=== PATIENT | female | born 1965 | race Caucasian/White ===

== ENCOUNTER 2019-03-16 13:18 | Inpatient (IN) ==
--- OUTSIDE RECORDS SUMMARY | 2019-03-16 13:21 | External Medical Summary | Continuity of Care Document ---
:1965 Author Name Christa Astorga Address Unavailable Unavailable , Care Team Providers Name Role Phone Unavailable Unavailable Unavailable Problems Active medical history not documented Allergies and Adverse Reactions No Known Drug Allergies (Allergy) Medications Topiramate 25 MG Oral Tablet; TAKE 1 TAB LET IN THE MORNING AND 2 TABLETS AT BEDTIME. , M.DPriscilla Start: 17-Jan-2016 Refills: 0 PROzac 40 MG Oral Capsule; TAKE 2 CAPSULES DAILY. , M.D. Start: 17-Jan-2016 Refills: 0 Procedures History of Total Abdominal Hysterectomy Status: Completed History of Breast Surgery Lumpectomy Sta tus: Completed Immunizations Immunizations not documented Social History - Smoking Status Never smoker Plan of Treatment Planned Observations Planned Goals not documented Results No Known Results Results not documented
[2019-03-16] MEDS ORDERED: LORazepam 1 MG TAB PO STA (13:32)
--- NOTE | 2019-03-16 13:49 | Emergency Department Note ---
Entered by Annita Meehan acting as a scribe for History of Present Illness General Chief complaint: Mental Health Evaluation Stated complaint: ANXIETY Time Seen by Provider: 03/16/19 13:24 Source: patient and family History of Present Illness Onset (ago): week(s) 2 Location: head Pain Consistency: + other (episode) Quality: + other (mental health evaluation, depression) Associated symptoms: + denies other symptoms (SI, HI) and + other (tearful episodes) The patient is a 54 year old female who presents to the ED for a mental health evaluation. The patient states that she has a history of depression. She states that she was here at the hospital in the psychiatric unit for a week in September. She states that when she got out, things were much better. She states that for the past 2 weeks, things have gotten much worse again. She states that she has n o idea why it is coming back. She states that she doesnt want to come back in, but feels that she needs to. The patient complains of tearful episodes and notes that the only reason why she is sleeping is because of her medications. The patients states that the patient told him today that she cant live like this anymore. The patient denies missing any of her medications, suicidal ideations, homicidal ideations, and ever trying to harm herself in the past. The patient denies issues with finances, relationships, social situations, friends, family, work, changes in her environment, and having any stressors. Home Medications Home Medications Medication Instructions Recorded Confirmed Type melatonin 10 mg PO HS PRN 10/17/18 03/16/19 History topiramate 75 mg PO DAILY 10/17/18 03/16/19 History diazepam 10 mg PO TID #12 tab 10/23/18 03/16/19 Rx fluoxetine 80 mg PO QAM #120 cap 10/23/18 03/16/19 Rx risperidone 5 mg PO DAILY 03/16/19 03/16/19 History Allergies Allergy/AdvReac Type Severity Reaction Status Date / Time morphine AdvReac Severe Rash Unverified 03/16/19 14:06 Past Med/Surg History Medical History Hypercholesterolemia Depression History of bulimia Hx of migraines Family History Other No significant family history Social History Preferred Language: Greenlandic Communication Ability: Effective Beliefs That Will Affect Care: None marital status: Current Living Situation: Spouse current occupational status: unemployed Feels Safe at Home: Yes Smoking Status: Never smoker Hx Alcohol Use: Yes Hx Substance Use: No Review of Systems See HPI for pertinent positives & negatives. and A total of 10 systems reviewed and were otherwise negative Physical Exam Vital Signs Vital Signs - 24 hr 03/16/19 13:20 03/16/19 15:23 Temperature 36.5 C Temperature Source Oral Sepsis Recent Fever Within 48 Hours No Sepsis New/Unexplained Change in Mental Status No Sepsis Action Taken by Nursing No Action Required Pulse Rate 74 Pulse Rate [Finger] 65 Respiratory Rate 18 18 Respiratory Effort / Characteristics Non-Labored Spontaneous Respiratory Depth Normal Normal Respiratory Pattern Regular Blood Pressure 110/77 Blood Pressure [Left Arm] 95/64 L Blood Pressure Mean 88 Blood Pressure Mean [Left Arm] 74 Blood Pressure Position [Left Arm] Sitting Pulse Oximetry 97 97 Oxygen Delivery Method Room Air Room Air GENERAL: Patient is in no acute distress. Tearful on exam. HEENT: No acute trauma, normocephalic atraumatic, mucous membranes moist, no nasal congestion, no scleral icterus. NECK: No stridor, no adenopathy, no meningismus, trachea is midline. LUNGS: Clear to auscultation bilaterally, no wheeze, no rhonchi, breath sounds equal. HEART: Without murmurs gallops or rubs, regular rate and rhythm. ABDOMEN: Soft, nontender, bowel sounds positive, no hernias, no peritonitis. EXTREMITIES: No cyanosis or edema, full range of motion of all the joints without pain or difficulty, no signs for acute trauma. NEUROLOGIC: Oriented x 3, no acute motor or sensory deficits, no focal weakness. SKIN: No rash, no jaundice, no diaphoresis. PSYCH: Cooperative. Voluntary. Denies suicidal and homicidal ideations. Patient has expressed to that "she can't live like this anymore." Course 1325: EMR reviewed. The patient was discharged from our psychiatric unit at this hospital on . She was in for a flare up of her Major Depressive Disorder. She was here for about a week. 1327: Past medical records reviewed. The patient was evaluated in room A8. A complete history and physical exam was performed. 1516: I spoke to the psych foster care case manager, Nanette and informed her that the patient is medically clear. 1624: The patient was accepted to [address] [place] [address]. Administered Medications Discontinued Medications Lorazepam (Ativan) 1 mg PO NOW STA Stop: 03/16/19 13:33 Last Admin: 03/16/19 13:50 Dose: 1 mg Documented by: [id number] Medical Decision Making Differential Diagnosis Differential diagnoses include medication noncompliance, exacerbation of depression, anxiety, situational depression, thyroid disorder, electrolyte imbalance, alcohol or drug abuse, suicidal ideations. Medical Records Attestation: I reviewed the patient's medical records. Home Medications Current Medication List: was personally reviewed by me Laboratory Data Attestation: I reviewed the patient's lab results. Result diagrams: 03/16/19 14:17 03/16/19 14:17 Lab Results 03/16/19 03/16/19 03/16/19 Range/Units 13:42 13:42 14:17 WBC 6.30 (4.8-10.8) K/uL RBC 4.37 (4.2-5.4) M/uL Hgb 13.0 (12.0-16.0) g/dL Hct 37.8 (37-47) % MCV 86.5 (80-100) fL MCH 29.7 (25-34) pg MCHC 34.4 (32-36) g/dL RDW Std Deviation 41.8 (36.4-46.3) fL RDW Coeff of Lloyd 13.2 (11.5-14.5) % Plt Count 275 (130-400) K/uL MPV 9.6 (7.4-10.4) fL Immature Gran % (Auto) 0.2 % Neut % (Auto) 69.2 % Lymph % (Auto) 21.6 % [place] % (Auto) 8.7 % Eos % (Auto) 0.0 % Baso % (Auto) 0.3 % Immature Gran # (Auto) 0.01 (0.00-0.02) K/uL Neut # (Auto) 4.36 (1.4-6.5) K/uL Lymph # (Auto) 1.36 (1.2-3.4) K/uL [place] # (Auto) 0.55 (0.11-0.59) K/uL Eos # (Auto) 0.00 (0-0.5) K/uL Baso # (Auto) 0.02 (0-0.2) K/uL Sodium (136-145) mmol/L Potassium (3.5-5.1) mmol/L Chloride (98-107) mmol/L Carbon Dioxide (21-32) mmol/L Anion Gap (3-11) BUN (7-18) mg/dl Creatinine (0.6-1.2) mg/dl Est Cr Clr Drug Dosing ml/min Est GFR ( Amer) Est GFR (Non-Af Amer) BUN/Creatinine Ratio (10-20) Glucose (70-99) mg/dl Calcium (8.5-10.1) mg/dl Total Bilirubin (0.2-1) mg/dl AST (15-37) U/L ALT (12-78) U/L Alkaline Phosphatase (45-117) U/L Total Protein (6.4-8.2) gm/dl Albumin (3.4-5.0) gm/dl Globulin (2.5-4.0) gm/dl Albumin/Globulin Ratio (0.9-2) TSH (0.300-4.500) uIu/ml Urine Color Yellow Urine Appearance Clear (Clear) Urine pH 6.5 (4.5-7.5) Ur Specific [place] 1.010 (1.000-1.030) Urine Protein Negative (Negative) Urine Glucose (UA) Negative (Negative) Urine Ketones Negative (Negative) Urine Blood Negative (Negative) Urine Nitrite Negative (Negative) Urine Bilirubin Negative (Negative) Urine Urobilinogen Negative (Negative) Ur Leukocyte Esterase Trace H (Negative) Urine WBC (Auto) 1-5 (0-5) /hpf Urine RBC (Auto) 0-4 (0-4) /hpf U Hyaline Cast (Auto) 0 (0-5) /lpf U Epithel Cells (Auto) 5-10 H (0-5) /lpf Urine Bacteria (Auto) Negative (Negative) Salicylates (2.8-20) mg/dl Urine Opiates Screen Neg (Neg) Ur Methadone, Qual Neg (Neg) Acetaminophen (10-30) ug/ml Urine Barbiturates Neg (Neg) Ur Phencyclidine (PCP) Neg (Neg) U Amphetamin/Meth Scrn Neg (Neg) MDMA (Ecstasy) Screen Neg (Neg) U Benzodiazepines Scrn Pos H (Neg) Ur Cocaine Metabolite Neg (Neg) U Marijuana (THC) Screen Neg (Neg) Ethyl Alcohol mg/dL (0-3) mg/dl 03/16/19 03/16/19 03/16/19 Range/Units 14:17 14:17 14:17 WBC (4.8-10.8) K/uL RBC (4.2-5.4) M/uL Hgb (12.0-16.0) g/dL Hct (37-47) % MCV (80-100) fL MCH (25-34) pg MCHC (32-36) g/dL RDW Std Deviation (36.4-46.3) fL RDW Coeff of Lloyd (11.5-14.5) % Plt Count (130-400) K/uL MPV (7.4-10.4) fL Immature Gran % (Auto) % Neut % (Auto) % Lymph % (Auto) % [place] % (Auto) % Eos % (Auto) % Baso % (Auto) % Immature Gran # (Auto) (0.00-0.02) K/uL Neut # (Auto) (1.4-6.5) K/uL Lymph # (Auto) (1.2-3.4) K/uL [place] # (Auto) (0.11-0.59) K/uL Eos # (Auto) (0-0.5) K/uL Baso # (Auto) (0-0.2) K/uL Sodium 141 (136-145) mmol/L Potassium 4.2 (3.5-5.1) mmol/L Chloride 109 H (98-107) mmol/L Carbon Dioxide 28 (21-32) mmol/L Anion Gap 4.0 (3-11) BUN 12 (7-18) mg/dl Creatinine 0.79 (0.6-1.2) mg/dl Est Cr Clr Drug Dosing 83.1 ml/min Est GFR ( Amer) 97.0 Est GFR (Non-Af Amer) 83.7 BUN/Creatinine Ratio 14.7 (10-20) Glucose 89 (70-99) mg/dl Calcium 9.2 (8.5-10.1) mg/dl Total Bilirubin 0.3 (0.2-1) mg/dl AST 25 (15-37) U/L ALT 45 (12-78) U/L Alkaline Phosphatase 79 (45-117) U/L Total Protein 7.5 (6.4-8.2) gm/dl Albumin 3.8 (3.4-5.0) gm/dl Globulin 3.7 (2.5-4.0) gm/dl Albumin/Globulin Ratio 1.0 (0.9-2) TSH 1.650 (0.300-4.500) uIu/ml Urine Color Urine Appearance (Clear) Urine pH (4.5-7.5) Ur Specific [place] (1.000-1.030) Urine Protein (Negative) Urine Glucose (UA) (Negative) Urine Ketones (Negative) Urine Blood (Negative) Urine Nitrite (Negative) Urine Bilirubin (Negative) Urine Urobilinogen (Negative) Ur Leukocyte Esterase (Negative) Urine WBC (Auto) (0-5) /hpf Urine RBC (Auto) (0-4) /hpf U Hyaline Cast (Auto) (0-5) /lpf U Epithel Cells (Auto) (0-5) /lpf Urine Bacteria (Auto) (Negative) Salicylates < 1.7 L (2.8-20) mg/dl Urine Opiates Screen (Neg) Ur Methadone, Qual (Neg) Acetaminophen < 2 L (10-30) ug/ml Urine Barbiturates (Neg) Ur Phencyclidine (PCP) (Neg) U Amphetamin/Meth Scrn (Neg) MDMA (Ecstasy) Screen (Neg) U Benzodiazepines Scrn (Neg) Ur Cocaine Metabolite (Neg) U Marijuana (THC) Screen (Neg) Ethyl Alcohol mg/dL < 3.0 (0-3) mg/dl Blood Pressure Blood Pressure Findings: Normal blood pressure Blood Pressure Disposition: did not require urgent referral MDM Narrative There is no leukocytosis or concerning anemia. No significant electrolyte abnormality or kidney failure. No elevation to the liver enzymes. The patient appeared to be in a euthyroid state. Urinalysis did not show evidence for infection. Aspirin, Tylenol and alcohol levels were undetectable. Urine tox was positive for benzos only. The patient presents with increasing depression and tearful spells. She feels that she cannot live this way any longer although she denies being suicidal. The patient was felt to be medically clear. She was seen by psychiatry case management. Patient is going to be voluntarily admitted to the psychiatric unit at this hospital, [address]. She has been cooperative during her stay here in the ED. Impression & Plan Depression, Excessive crying of adult Discharge Plan Visit Data *Final* Discharge Date/Time: 03/16/19 16:44 Chief Complaint: Mental Health Evaluation Stated Complaint: ANXIETY ED Provider: Alonso Hitchcock Discharge Problem: Depression, Excessive crying of adult Patient Disposition: Admitted As Inpatient Discharge Instructions Interventions: ED Discharge Assessment Last Done: 03/16/19 16:44 Discharge Problem: Depression Qualifiers: Depression Type: unspecified Qualified Code(s): F32.9 - Major depressive disorder, single episode, unspecified The scribe's documentation has been prepared under my direction and personally reviewed by me in its entirety. I confirm that the note above accurately reflects all work, treatment, procedures, and medical decision making performed by me.
[2019-03-16 14:03] LABS: Appearance Urine Clear (Clear); Bacteria Urine Automated Negative (Negative); Bilirubin Urine Negative (Negative); Blood Urine Negative (Negative); Cast Urine Automated 0 /lpf (0-5); Color Urine Yellow; Glucose Urine UA Negative (Negative); Ketones Urine Negative (Negative); Leukocyte Esterase Urine Trace (Negative); Nitrite Urine Negative (Negative); Protein Urine Negative (Negative); RBC Urine Automated 0-4 /hpf (0-4); Urobilinogen Urine Negative (Negative); pH Urine 6.5 (4.5-7.5)
[2019-03-16 14:29] LABS: Amphetamines+Metham, Urine Neg (Neg); Barbiturates, Urine Neg (Neg); Benzodiazepine, Urine Pos (Neg); Cocaine, Urine Neg (Neg); MDMA (Ecstacy), Urine Neg (Neg); Methadone, Urine Neg (Neg); Opiate, Urine Neg (Neg); Phencyclidine, Urine Neg (Neg)
[2019-03-16 14:31] LABS: Basophils # (auto) 0.02 K/uL (0-0.2); Basophils % (auto) 0.3 %; Hematocrit (blood only) 37.8 % (37-47); Immature Granulocytes # (auto) 0.01 K/uL (0.00-0.02); Immature Granulocytes % (auto) 0.2 %; Lymphocytes # (auto) 1.36 K/uL (1.2-3.4); Lymphocytes % (auto) 21.6 %; Mean Corpuscular Hgb Conc 34.4 g/dL (32-36); Mean Corpuscular Volume 86.5 fL (80-100); Mean Platelet Volume 9.6 fL (7.4-10.4); Monocytes # (auto) 0.55 K/uL (0.11-0.59); Monocytes % (auto) 8.7 %; Neutrophils # (auto) 4.36 K/uL (1.4-6.5); Neutrophils % (auto) 69.2 %; Platelet Count 275 K/uL (130-400); RDW Coefficient of Variation 13.2 % (11.5-14.5); RDW Standard Deviation 41.8 fL (36.4-46.3); Red Blood Count 4.37 M/uL (4.2-5.4)
[2019-03-16 14:48] LABS: Acetaminophen < 2 ug/ml (10-30); Albumin Level 3.8 gm/dl (3.4-5.0); BUN Creatinine Ratio 14.7 (10-20); Calcium 9.2 mg/dl (8.5-10.1); Creatinine Clr Calc Pharmacy 83.1 ml/min; Est GFR (Non-African American) 83.7; Potassium 4.2 mmol/L (3.5-5.1); Salicylate < 1.7 mg/dl (2.8-20)
[2019-03-16 14:58] LABS: Bilirubin,Total 0.3 mg/dl (0.2-1); Globulin 3.7 gm/dl (2.5-4.0); Total Protein 7.5 gm/dl (6.4-8.2)
[2019-03-16] MEDS ORDERED: BISMUTH SUBSALICYLATE PER ML OMNICELL CHARGE PO PRN (16:14)
[2019-03-16] MEDS ORDERED: SODIUM CHLORIDE 0.65% NA SOLN 45 ML (OCEAN) PRN (16:14)
[2019-03-16] MEDS ORDERED: ACETAMINOPHEN 325 MG TAB PO PRN (16:14)
[2019-03-16] MEDS ORDERED: ALUMINUM/MAGNESIUM SUSP 30 ML UDC PO PRN (16:14)
[2019-03-16] MEDS ORDERED: risperiDONE 1 MG TABLET PO SCH (22:00)
[2019-03-16] MEDS ORDERED: TOPIRAMATE 25 MG TAB PO SCH (22:00)
[2019-03-16] MEDS: diazePAM 5 MG TABLET PO SCH (22:00)
[2019-03-17] MEDS: FLUOXETINE HCL 20 MG CAP PO SCH (08:55)
[2019-03-17] MEDS: diazePAM 5 MG TABLET PO SCH ×3 (08:56→21:12)
[2019-03-17] MEDS ORDERED: DiphenhydrAMINE HCL 50 MG/ML VIAL IM STA (09:39)
--- NOTE | 2019-03-17 10:10 | History & Physical ---
Date of Service March 17, 2019 Impression / Recommendations Impression This 54-year-old woman who was admitted yesterday because of worsening anxiety and depression, particularly over the past 2 weeks. Her report is that at the time of her discharge from the behavioral health unit at [facility] in September 2018 she was doing "really well," and continued to do well in the community, but, over time, began to notice worsening anxiety and intermittent recurrences of depressed mood. She notes that for approximately the past 2 months she has been quite "nervous" and, for the most part, has also felt depressed with anhedonia, psychosocial withdrawal, mood irritability, fatigue, anergia, crying spells, and anxious distress. Although the sequencing is not entirely clear, it appears that her outpatient physician increased her dose of risperidone from risperidone 1 mg twice a day to a dose of 2 mg in the morning and 5 mg at bedtime, through titration. The patient continued on fluoxetine 80 mg a day, together with diazepam 10 mg 3 times a day and, at times, with supplemental lorazepam, and Topamax 150 mg HS. (However, her outpatient psychiatrist, Dr. Christian Hassan reports that she is supposed to be taking risperidone 3 mg HS, fluoxetine 80 mg daily, diazepam 10 mg BID, and Topamax 50 mg TID, and so it is not entirely clear what dosages she is actually taking. Within this context, the patient tells us that she was experiencing mental "cloudiness" and found herself excessively sedated, sometimes to the point that it was difficult for her to function. She is aware that benzodiazepines, such as diazepam and lorazepam can contribute to diminished me ntal acuity, and she notes that she discontinued risperidone 2 mg in the morning (but continued 5 mg at bedtime) because she also realized that risperidone was contributing to her sedation. Of particular note, however, is the fact that on examination today the patient revealed what may be considered pronounced cogwheel rigidity. She describes symptoms that are consistent with the diagnosis of akathisia, including restlessness, difficulty sitting still, and a feeling that she describes as "jumpy." My impression is that while akathisia may not fully explain the patient's presenting clinical picture, it is likely to be significantly contributing to what the patient refers to as "nervousness" and "anxiety." It was explained to the patient that both risperidone and fluoxetine may cause extraparametal side effects that can include motor stiffness, cogwheel rigidity, and a restless sensation known as akathisia. Within this context the patient will be offered a stat dose of diphenhydramine 25 mg IM and started on Artane, beginning at 1 mg this evening, and 2 mg daily. Risperidone 5 mg at bedtime has been discontinued in favor of risperidone 2 mg at bedtime. Her dose of topiramate will be changed from 150 mg at bedtime to 50 mg in the morning and 100 mg at bedtime. The patient's dose of diazepam will be lowered from 10 mg 3 times a day to diazepam 10 mg twice a day. And we will continue fluoxetine 80 mg at bedtime daily, but may find it necessary to lower this dose to 60 mg, depending upon the patient's response. We are also considering discontinuing risperidone completely in favor of low-dose quetiapine during the day and at bedtime. (1) Generalized anxiety disorder with panic attacks: 03/17/19 -Discontinue diazepam 10 mg 3 times daily, as reported by the patient his admission, and reduce the dose of diazepam to 10 mg twice daily, consistent with the dose identified by her outpatient psychiatrist. -Consider adding quetiapine 25 mg twice a day and 50 mg at bedtime for anxiety, mood stabilization, adjunctive treatment for depression, and sleep. (With discontinuation of risperidone) -Consider buspirone. The patient indicates that she has taken buspirone in the past, does not recall whether it was effective, and says that although she cannot recall exactly why she discontinued it, she believes that it may have bee n because of a fear of associated weight gain. She has been offered some reassurances in this regard. Present on Admission?: Yes (2) Extrapyramidal movement disorder, drug-induced: 03/17/19 -On examination today, the patient is found to have fairly pronounced cogwheel rigidity. This will be treated immediately with IM diphenhydramine, and then with Artane beginning at 1 mg this evening and 2 mg in the morning. The dose of Artane may need to be titrated further, depending on the patient's response. -The patient's complaints of increased anxiety and restlessness may have corresponded with concomitant increases in her her dosage of risperidone. Her dose of risperidone has been decreased to 2 mg at bedtime. -The patient's akathisia may be secondary to either risperidone or fluoxetine. We will evaluate the patient's response to antiparkinsonian agents and consider decreasing fluoxetine, if indicated. Present on Admission?: Yes (3) Major psychotic depression, recurrent: 03/17/19 -Provide individual, group, activity, and educational interventions, with goals that include developing improved coping strategies and relaxation techniques. -Continue fluoxetine 80 mg daily. As noted, fluoxetine may be contributing to the patient's extraparametal symptoms and, within this context, it may be necessary to decrease her dose of fluoxetine, depending upon her response to antiparkinsonian agents and other medication changes. -The patient's outpatient psychiatrist has advised is that the patient's correct dose of topiramate is 50 mg 3 times a day. We will offer the patient topiramate 50 mg in the morning and 100 mg at bedtime for mood stabilization. (It is our understanding that her insurance company has not authorized extended release topiramate.) Inventory Assets Strengths: Supportive family. Favorable education history. Motivated to recovery. Good insight. Needs: Recovery from recurrent depression, and generalized anxiety. There is also a past history of bulimia nervosa. The patient's report is that this is not currently an active problem. Risk Factors Assessment Male: No : Yes Do You Have Access To A Gun?: No Health Problems: Yes Mental Health Diagnoses: Yes Substance Use Disorders: No Previous Attempt: No Family History of Suicide: No Previous Psychiatric Hospitalization: Yes Hopelessness: No Smoker: No Protective Factors Assessment : Yes Responsible for Young Children: No Employed: No Stable Relationships: Yes Supportive Family: Yes Good Rapport with Provider: Yes Absence of Any Risk Factors Above: No Psychiatric History Identifying Data GERRY COLLINS is a 54-year-old F who currently lives locally with her . She has a history of recurrent major depression and generalized anxiety. She was admitted on 03/16/19 16:15 on a 201 voluntary agreement Chief Complaint "I'm so nervous I can't function". History of Present Illness The patient is a 54 year old female who presented to the ED for a mental health evaluation on the afternoon of 03/16/19. The patient has not known history of major depression, recurrent, severe and generalized anxiety with panic. She is known to the behavioral health unit from a previous admission to the hospital in September of this year. The patient reports that she was doing "really well" at the time of her discharge in September, and that she continued to do well until approximately 2 months ago, at which point she began to notice worsening anxiety with alternating levels of depression. She notes that for the past 2 weeks, her anxiety level worsened fairly dramatically. The patient does not identify any precipitating factors, but does say that she felt that her psychiatric medications may be "too strong," or "may have built up over time," so that she was experiencing excess sedation, a lack of mental acuity, and a pronounced restless, nervous feeling that is present "all the time." She indicates that her dose of risperidone, which had been 1 mg twice a day at the time of discharge from the behavioral health unit in September was titrated to a dose that she believes was 2 mg in the morning and 5 mg at bedtime. Because of the sensation of being overly sedated, she independently discontinue the 2 mg risperidone dose in the morning, but continue the 5 mg dose at bedtime. The patient complains of tearful episodes and notes that the only reason why she is sleeping is because of her medications. The patients reportedly stated that the patient told him today that she cant live like this anymore. The patient denies missing any of her medications, suicidal ideations, homicidal ideations, and ever trying to harm herself in the past. The patient denies issues with finances, relationships, social situations, friends, family, work, changes in her environment, and having any stressors, with one exception. That exception is the fact that her older son graduated from college this spring, and her younger son graduated from high school, also the spring. However, the patient's anxiety levels had substantially exacerbated long before either of these events. Past Psychiatric History Previous Psych History: The patient reports that she was diagnosed with depression at the age of 21. She has availed herself of psychiatric treatment, at least intermittently, since that time. She also has carried the diagnosis of bulimia nervosa, but reports that this is not a current problem. Current Psychiatric Diagnosis: MDD Previous Psych Admissions: The patient has had 2 reported psychiatric hospitalizations. The first occurred approximately 2 years ago at a facility known as [facility] in [place], and at that time the patient's primary diagnosis was bulimia nervosa. The second and most recent previous psychiatric hospitalization was on the behavioral health unit at [facility]. That diagnosis was for depression and anxiety. Do You Have Access To A Gun?: No History of Previous Suicide Attempt: No Describe Attempts in the Past: No history of suicide attempts or intentional self-injurious behaviors. Past Medication Trials: Patient recalls and reports trials of several psychiatric medications over the years. These have included venlafaxine (partially effective), buspirone (the patient does not recall if it was effective, but believes that she discontinued it because she was afraid that it might cause weight gain), alprazolam (partially effective, but without sustained benefit) and clonazepam, not effective. Additional Notes: The patient's current medications include risperidone 5 mg at bedtime and fluoxetine 80 mg a day. She indicates that she had also been prescribed risperidone 2 mg in the morning, but had discontinued this because of excess sedation. Past Head Trauma/Neuro History History of Concussion/Seizure: No Allergies Allergy/AdvReac Type Severity Reaction Status Date / Time morphine AdvReac Severe Rash Unverified 03/16/19 14:06 Home Medications Home Medications Medication Instructions Recorded Confirmed Type melatonin 10 mg PO HS PRN 10/17/18 03/16/19 History topiramate 75 mg PO DAILY 10/17/18 03/16/19 History fluoxetine 80 mg PO QAM #120 cap 10/23/18 03/16/19 Rx risperidone 5 mg PO DAILY 03/16/19 03/16/19 History diazepam 10 mg PO HS 03/17/19 03/17/19 History diazepam 10 mg PO QDL 03/17/19 03/17/19 History Family History Family History of: Depression Family Mental Health History Comment: Mom Alcohol History Hx of Alcohol Use Over the Past 12 Months: Yes (wine, 2 drinks, weekly, "can't remember") Smoking Use Have You Smoked or Used Tobacco Products in the Last 30 Days: No Smoking Status: Never smoker Substance History Hx of Prescription Med Misuse Over the Past 12 Months: No Hx of Over the Counter Med Misuse Over the Past 12 Months: No Hx of Inhalent Misuse Over the Past 12 Months: No Hx of Organic Substance Use Over the Past 12 Months: No Hx of Illegal Substances/Street Drug Use Over Past 12 Months: No Problems as a Result of Past Substance Use: None Identified Personal History Living Arrangements: Home Living Arrangements Comments: Patient reports that she lives with her and a teenage son who is recently graduated from high school. An older son graduated from college and will be starting a job in [place], [place], in the near future. The ultrasound is not living at home. Born In: [place] Childhood: The patient reports that she was raised and [place], and describes her childhood as having been "okay." She indicates that her relationship with her mother and sister was "close," but indicated that her relationship with her father was somewhat strained. 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 Patient History Medical History Hypercholesterolemia Depression History of bulimia Hx of migraines Family History Other No significant family history Social History Preferred Language: Mauritanian Communication Ability: Effective Beliefs That Will Affect Care: None marital status: Current Living Situation: Spouse current occupational status: unemployed Feels Safe at Home: Yes Smoking Status: Never smoker Hx Alcohol Use: Yes Hx Substance Use: No Review of Systems Review of Systems: All systems reviewed & are unremarkable except as noted in HPI & below On examination in the behavioral health unit by Dr. Bear on 06/17/2019 the patient was found to have fairly pronounced cogwheel rigidity upon testing. The somatic history, review of systems, and physical examination completed by Dr. Alonso Hitchcock on 03/16/2019 in the emergency department has been reviewed and is accepted as medical clearance for the behavioral health unit. Physical Exam Psychiatric: Orientation: oriented x 3 Apperance: appropriately dressed and appropriately groomed Eye Contact: + fair eye contact The patient's movements are stiff, and on examination the patient is found to have fairly pronounced cogwheel rigidity. Further, she describes a restless or "jumpy" feeling and says that it is sometimes difficult for her to remain still. The patient's speech is spontaneous, but is delivered in a somewhat soft and slowed fashion. There is also a slight tremor in the patient's voice. Affect: + depressed affect and + anxious affect Mood: + depressed mood and + anxious mood Thought Process: goal directed thought process, linear/logical thought process and clear/coherent thought process Thought Content: reality based without delusions Suicidal Thoughts: denies suicidal thoughts Patient reports that she has no history of intentional self-injurious behaviors, and that, despite her emotional distress, she has not ever contemplated suicide. Homicidal Thoughts: denies homicidal thoughts Hallucinations: no auditory hallucinations, no visual hallucinations, no tactile hallucinations and no gustatory hallucinations Cognition: recent memory grossly intact, remote memory grossly intact, attention grossly intact (At times, the patient's ability to concentrate and focus appears to be impaired by anxiety.) and language grossly intact Estimated Intelligence: + above average estimated intelligence Insight: good insight Judgement: good judgement Vital Signs (Past 24 Hours): Last Vital Signs Temp 36.5 C 03/17/19 06:44 Pulse 75 03/17/19 06:45 Resp 16 03/17/19 06:44 BP 94/68 L 03/17/19 06:45 Pulse Ox 97 03/16/19 17:11 Results & Data Laboratory Results Laboratory Results - last 24 hr 03/16/19 03/16/19 03/16/19 13:42 13:42 13:42 WBC RBC Hgb Hct MCV MCH MCHC RDW Std Deviation RDW Coeff of Lloyd Plt Count MPV Immature Gran % (Auto) Neut % (Auto) Lymph % (Auto) Starr % (Auto) Eos % (Auto) Baso % (Auto) Immature Gran # (Auto) Neut # (Auto) Lymph # (Auto) Starr # (Auto) Eos # (Auto) Baso # (Auto) Sodium Potassium Chloride Carbon Dioxide Anion Gap BUN Creatinine Est Cr Clr Drug Dosing Est GFR ( Amer) Est GFR (Non-Af Amer) BUN/Creatinine Ratio Glucose Calcium Total Bilirubin AST ALT Alkaline Phosphatase Total Protein Albumin Globulin Albumin/Globulin Ratio TSH Urine Color Yellow Urine Appearance Clear Urine pH 6.5 Ur Specific [place] 1.010 Urine Protein Negative Urine Glucose (UA) Negative Urine Ketones Negative Urine Blood Negative Urine Nitrite Negative Urine Bilirubin Negative Urine Urobilinogen Negative Ur Leukocyte Esterase Trace H Urine WBC (Auto) 1-5 Urine RBC (Auto) 0-4 U Hyaline Cast (Auto) 0 U Epithel Cells (Auto) 5-10 H Urine Bacteria (Auto) Negative Salicylates Urine Opiates Screen Neg Ur Methadone, Qual Neg Acetaminophen Urine Barbiturates Neg Ur Phencyclidine (PCP) Neg U Amphetamin/Meth Scrn Neg MDMA (Ecstasy) Screen Neg U OH-Alprazolam Confrm Pending U Benzodiazepines Scrn Pos H 7-Amino Clonazepam Pending Ur Nordiazepam Confirm Pending U OH-ethylflurazepam Pending U Lorazepam Cnf GC/MS Pending U Oxazepam Confm GC/MS Pending Ur Temazepam Confirm Pending U OH-Triazolam Confirm Pending U OH-Midazolam Confirm Pending Ur Cocaine Metabolite Neg U Marijuana (THC) Screen Neg Ethyl Alcohol mg/dL 03/16/19 03/16/19 03/16/19 14:17 14:17 14:17 WBC 6.30 RBC 4.37 Hgb 13.0 Hct 37.8 MCV 86.5 MCH 29.7 MCHC 34.4 RDW Std Deviation 41.8 RDW Coeff of Lloyd 13.2 Plt Count 275 MPV 9.6 Immature Gran % (Auto) 0.2 Neut % (Auto) 69.2 Lymph % (Auto) 21.6 Starr % (Auto) 8.7 Eos % (Auto) 0.0 Baso % (Auto) 0.3 Immature Gran # (Auto) 0.01 Neut # (Auto) 4.36 Lymph # (Auto) 1.36 Starr # (Auto) 0.55 Eos # (Auto) 0.00 Baso # (Auto) 0.02 Sodium 141 Potassium 4.2 Chloride 109 H Carbon Dioxide 28 Anion Gap 4.0 BUN 12 Creatinine 0.79 Est Cr Clr Drug Dosing 83.1 Est GFR ( Amer) 97.0 Est GFR (Non-Af Amer) 83.7 BUN/Creatinine Ratio 14.7 Glucose 89 Calcium 9.2 Total Bilirubin 0.3 AST 25 ALT 45 Alkaline Phosphatase 79 Total Protein 7.5 Albumin 3.8 Globulin 3.7 Albumin/Globulin Ratio 1.0 TSH 1.650 Urine Color Urine Appearance Urine pH Ur Specific [place] Urine Protein Urine Glucose (UA) Urine Ketones Urine Blood Urine Nitrite Urine Bilirubin Urine Urobilinogen Ur Leukocyte Esterase Urine WBC (Auto) Urine RBC (Auto) U Hyaline Cast (Auto) U Epithel Cells (Auto) Urine Bacteria (Auto) Salicylates < 1.7 L Urine Opiates Screen Ur Methadone, Qual Acetaminophen < 2 L Urine Barbiturates Ur Phencyclidine (PCP) U Amphetamin/Meth Scrn MDMA (Ecstasy) Screen U OH-Alprazolam Confrm U Benzodiazepines Scrn 7-Amino Clonazepam Ur Nordiazepam Confirm U OH-ethylflurazepam U Lorazepam Cnf GC/MS U Oxazepam Confm GC/MS Ur Temazepam Confirm U OH-Triazolam Confirm U OH-Midazolam Confirm Ur Cocaine Metabolite U Marijuana (THC) Screen Ethyl Alcohol mg/dL 03/16/19 14:17 WBC RBC Hgb Hct MCV MCH MCHC RDW Std Deviation RDW Coeff of Lloyd Plt Count MPV Immature Gran % (Auto) Neut % (Auto) Lymph % (Auto) Starr % (Auto) Eos % (Auto) Baso % (Auto) Immature Gran # (Auto) Neut # (Auto) Lymph # (Auto) Starr # (Auto) Eos # (Auto) Baso # (Auto) Sodium Potassium Chloride Carbon Dioxide Anion Gap BUN Creatinine Est Cr Clr Drug Dosing Est GFR ( Amer) Est GFR (Non-Af Amer) BUN/Creatinine Ratio Glucose Calcium Total Bilirubin AST ALT Alkaline Phosphatase Total Protein Albumin Globulin Albumin/Globulin Ratio TSH Urine Color Urine Appearance Urine pH Ur Specific [place] Urine Protein Urine Glucose (UA) Urine Ketones Urine Blood Urine Nitrite Urine Bilirubin Urine Urobilinogen Ur Leukocyte Esterase Urine WBC (Auto) Urine RBC (Auto) U Hyaline Cast (Auto) U Epithel Cells (Auto) Urine Bacteria (Auto) Salicylates Urine Opiates Screen Ur Methadone, Qual Acetaminophen Urine Barbiturates Ur Phencyclidine (PCP) U Amphetamin/Meth Scrn MDMA (Ecstasy) Screen U OH-Alprazolam Confrm U Benzodiazepines Scrn 7-Amino Clonazepam Ur Nordiazepam Confirm U OH-ethylflurazepam U Lorazepam Cnf GC/MS U Oxazepam Confm GC/MS Ur Temazepam Confirm U OH-Triazolam Confirm U OH-Midazolam Confirm Ur Cocaine Metabolite U Marijuana (THC) Screen Ethyl Alcohol mg/dL < 3.0 Diagnostic Findings Major depressive disorder, recurrent, with anxiety complicated by extraparametal side effects. Current Inpatient Medications Current Inpatient Medications: Current Inpatient Medications Acetaminophen (Tylenol) 650 mg PO Q4H PRN PRN Reason: Headache or Minor Fever Stop: 04/15/19 16:13 Al Hydrox/Mg Hydrox/Simethicone (Maalox) 30 ml PO Q4H PRN PRN Reason: GI Upset Stop: 04/15/19 16:13 Bismuth Subsalicylate (Kaopectate) 15 ml PO PRN PRN PRN Reason: Loose Stool Stop: 04/15/19 16:13 Diazepam (Valium) 10 mg PO TID [facility] Stop: 04/15/19 20:59 Last Admin: 03/17/19 08:56 Dose: 10 mg Documented by: Fluoxetine HCl (Prozac) 80 mg PO QAM [facility] Stop: 04/16/19 08:59 Last Admin: 03/17/19 08:55 Dose: 80 mg Documented by: Hydroxyzine HCl (Vistaril) 50 mg PO HSZ PRN PRN Reason: Insomnia Stop: 04/15/19 16:13 Hydroxyzine HCl (Vistaril) 25 mg PO Q4H PRN PRN Reason: Anxiety Stop: 04/15/19 16:13 Magnesium Hydroxide (Milk Of Magnesia) 30 ml PO DAILY PRN PRN Reason: Heartburn Stop: 04/15/19 16:13 Risperidone (Risperdal) 2 mg PO [facility] Stop: 04/16/19 21:59 Sodium Chloride ([place] Nasal) 1 - 2 sprays NA PRN PRN PRN Reason: Nasal Dryness/Congestion Stop: 04/15/19 16:13 Topiramate (Topamax) 75 mg PO [facility] Stop: 04/15/19 21:59 Last Admin: 03/16/19 22:01 Dose: 75 mg Documented by: Trihexyphenidyl HCl (Artane) 1 mg PO ONE ONE Stop: 03/17/19 20:01 CPT Code CPT Code Initial Hospital Care: 30306
[2019-03-17] MEDS ORDERED: TRIHEXYPHENIDYL HCL 2 MG TAB PO ONE (20:00)
[2019-03-17] MEDS: risperiDONE 2 MG TABLET PO SCH (21:10)
[2019-03-17] MEDS ORDERED: TOPIRAMATE 100 MG TAB PO SCH (22:00)
[2019-03-18] MEDS ORDERED: TOPIRAMATE 50 MG TAB PO SCH (09:00)
[2019-03-18] MEDS: FLUOXETINE HCL 20 MG CAP PO SCH (09:06)
[2019-03-18] MEDS: diazePAM 5 MG TABLET PO SCH ×2 (09:10→21:27)
--- NOTE | 2019-03-18 15:10 | Psychiatric Progress Note ---
Date of Service March 18, 2019 Impression / Recommendations Impression This 54-year-old woman who was admitted because of worsening anxiety and depression, particularly over the past 2 weeks. Her report is that at the time of her discharge from the behavioral health unit at [facility] in September 2018 she was doing "really well," and continued to do well in the community, but, over time, began to notice worsening anxiety and intermittent recurrences of depressed mood. She notes that for approximately the past 2 months she has been quite "nervous" and, for the most part, has also felt depressed with anhedonia, psychosocial withdrawal, mood irritability, fatigue, anergia, crying spells, and anxious distress. It appears possible that medication side effects over time may have contributed to her complaints including sedation and motoric slowing. (1) Generalized anxiety disorder with panic attacks: 03/17/19 -Discontinue diazepam 10 mg 3 times daily, as reported by the patient his admission, and reduce the dose of diazepam to 10 mg twice daily, consistent with the dose identified by her outpatient psychiatrist. -Consider adding quetiapine 25 mg twice a day and 50 mg at bedtime for anxiety, mood stabilization, adjunctive treatment for depression, and sleep. (With discontinuation of risperidone) -Consider buspirone. The patient indicates that she has taken buspirone in the past, does not recall whether it was effective, and says that although she cannot recall exactly why she discontinued it, she believes that it may have been because of a fear of associated weight gain. She has been offered some reassurances in this regard. 03/18 -Reduce Valium to 5 mg twice daily to reduce sedation. Given long half-life, there is a possibility that this became slowly more intoxicating over time at home dose. (2) Extrapyramidal movement disorder, drug-induced: 03/17/19 -On examination today, the patient is found to have fairly pronounced cogwheel rigidity. This will be treated immediately with IM diphenhydramine, and then with Artane beginning at 1 mg this evening and 2 mg in the morning. The dose of Artane may need to be titrated further, depending on the patient's response. -The patient's complaints of increased anxiety and restlessness may have corresponded with concomitant increases in her her dosage of risperidone. Her dose of risperidone has been decreased to 2 mg at bedtime. -The patient's akathisia may be secondary to either risperidone or fluoxetine. We will evaluate the patient's response to antiparkinsonian agents and consider decreasing fluoxetine, if indicated. 03/18 -It remains unclear to me if she had, in fact, been taking a higher dose of the Risperdal at home. Before we reduce her dose any further, we will request nursing assistance to verify her last dispensed dose at [facility] in [facility] -No cogwheeling today. Describing improved restlessness following Benadryl and Artane yesterday however complains of increased drowsiness following those medications and will defer standing anticholinergic treatment for now. We may consider dose reduction of the Risperdal or possibly alternative agent with lower risk for EPS as suggested by Dr. Bear previously (3) Major psychotic depression, recurrent: 03/17/19 -Provide individual, group, activity, and educational interventions, with goals that include developing improved coping strategies and relaxation techniques. -Continue fluoxetine 80 mg daily. As noted, fluoxetine may be contributing to the patient's extraparametal symptoms and, within this context, it may be necessary to decrease her dose of fluoxetine, depending upon her response to antiparkinsonian agents and other medication changes. -The patient's outpatient psychiatrist has advised is that the patient's correct dose of topiramate is 50 mg 3 times a day. We will offer the patient topiramate 50 mg in the morning and 100 mg at bedtime for mood stabilization. (It is our understanding that her insurance company has not authorized extended release topiramate.) 03/18 -Patient reports previous good response to the Prozac and will defer changes to that medication today -As she believes her long-standing maintenance dose of the Topamax was 75 mg nightly and in considering possible negative cognitive effects of higher doses of the medication will reduce the Topamax back to her former maintenance dose of 75 mg nightly presently Inventory Assets Strengths: Supportive family. Favorable education history. Motivated to recovery. Good insight. Needs: Recovery from recurrent depression, and generalized anxiety. There is also a past history of bulimia nervosa. The patient's report is that this is not currently an active problem. Risk Factors Assessment Male: No : Yes Do You Have Access To A Gun?: No Health Problems: Yes Mental Health Diagnoses: Yes Substance Use Disorders: No Previous Attempt: No Family History of Suicide: No Previous Psychiatric Hospitalization: Yes Hopelessness: No Smoker: No Protective Factors Assessment : Yes Responsible for Young Children: No Employed: No Stable Relationships: Yes Supportive Family: Yes Good Rapport with Provider: Yes Absence of Any Risk Factors Above: No Interval History Chief Complaint "It felt like I was overmedicated". Review of Systems Notes Restlessness reduced but not resolved. Denies confusion. Sleep Information Total Hours of Sleep: 8.5 Sleep Comments: pt on q-15 minute checks Meal Information Percent Meal Consumed - Breakfast: 100 Percent Meal Consumed - Lunch: 90 Percent Meal Consumed - Dinner: 95 Nutrition Comment: per meal log Subjective Subjective Patient was seen & assessed and interval progress reviewed with Treatment Team. reviewed with treatment team the patient was admitted on a voluntary status experiencing decreased functional ability at home and increased anxiety. Admitting provider appreciated dystonia and suspected akathisia and treated with 25 mg of diphenhydramine IM and Artane 1 mg yesterday. She reports this was helpful for the restless feeling but made her very sleepy. She requested to take only 5 mg of the Valium this morning which she feels was better tolerated. Reviewed outpatient treatment regimen and she believes she was taking 5 mg of Risperdal at bedtime however review of outpatient provider note from 03/16/2019 indicates 3 mg at bedtime. Unclear if this had been increased or decreased recently. Additionally she reports that her maintenance dose of the Topamax has consistently been 75 mg nightly until recently increased by her outpatient provider however the XR formulation was not covered. She describes feeling increasingly drowsy, foggy, slowed both mentally and physically over several months. This morning she describes feeling a little more alert and denies feeling confused and is fully oriented. She does appreciate feeling subjectively anxious. She denies hallucinations. She denies suicidal ideation. She has no cogwheeling in upper extremities this morning. Physical Exam Psychiatric Orientation: alert, oriented x 3 and cooperative Apperance: appropriately dressed and + disheveled Eye Contact: good eye contact Motor Behavior: steady gait and station (She does not appear parkinsonian); + abnormal motor movements (No dystonia or cogwheeling in upper extremities) and n tremor Speech: + abnormal rate/rhythm/volume of speech (Soft but clear, somewhat rapid) Affect: + anxious affect Mood: + anxious mood Thought Process: goal directed thought process Thought Content: reality based without delusions Suicidal Thoughts: denies suicidal thoughts, denies suicidal plan and denies suicidal intent Hallucinations: no auditory hallucinations, no visual hallucinations and no tactile hallucinations Cognition: recent memory grossly intact Estimated Intelligence: average estimated intelligence Insight: + fair insight Judgement: + fair judgement Vital Signs (Past 24 Hours) Last Vital Signs Temp 36.5 C 03/18/19 06:53 Pulse 71 03/18/19 06:54 Resp 16 03/18/19 06:53 BP 81/50 L 03/18/19 06:54 Pulse Ox 97 03/16/19 17:11 Results & Data Current Inpatient Medications Current Inpatient Medications: Current Inpatient Medications Acetaminophen (Tylenol) 650 mg PO Q4H PRN PRN Reason: Headache or Minor Fever Stop: 04/15/19 16:13 Al Hydrox/Mg Hydrox/Simethicone (Maalox) 30 ml PO Q4H PRN PRN Reason: GI Upset Stop: 04/15/19 16:13 Bismuth Subsalicylate (Kaopectate) 15 ml PO PRN PRN PRN Reason: Loose Stool Stop: 04/15/19 16:13 Diazepam (Valium) 10 mg PO BID ELISSA Stop: 04/16/19 20:59 Last Admin: 03/18/19 09:10 Dose: 5 mg Documented by: Fluoxetine HCl (Prozac) 80 mg PO QAM ELISSA Stop: 04/16/19 08:59 Last Admin: 03/18/19 09:06 Dose: 80 mg Documented by: Hydroxyzine HCl (Vistaril) 50 mg PO HSZ PRN PRN Reason: Insomnia Stop: 04/15/19 16:13 Hydroxyzine HCl (Vistaril) 25 mg PO Q4H PRN PRN Reason: Anxiety Stop: 04/15/19 16:13 Magnesium Hydroxide (Milk Of Magnesia) 30 ml PO DAILY PRN PRN Reason: Heartburn Stop: 04/15/19 16:13 Risperidone (Risperdal) 2 mg PO HS ELISSA Stop: 04/16/19 21:59 Last Admin: 03/17/19 21:10 Dose: 2 mg Documented by: Sodium Chloride ([place] Nasal) 1 - 2 sprays NA PRN PRN PRN Reason: Nasal Dryness/Congestion Stop: 04/15/19 16:13 Topiramate (Topamax) 50 mg PO QAM ELISSA Stop: 04/17/19 08:59 Last Admin: 03/18/19 09:06 Dose: 50 mg Documented by: Topiramate (Topamax) 100 mg PO HS ELISSA Stop: 04/16/19 21:59 Last Admin: 03/17/19 21:10 Dose: 100 mg Documented by: Post Discharge Appointments Primary Care Physician Name Of Family Doctor: Rhonda Fajardo Therapist Name of Therapist: Alec Palacio - Mario Cabrera Nougat Candy Maker Helper Name of Nougat Candy Maker Helper: None CPT Code CPT Code 83013
[2019-03-18] MEDS: TOPIRAMATE 25 MG TAB PO SCH (21:27)
[2019-03-18] MEDS: risperiDONE 2 MG TABLET PO SCH (21:27)
[2019-03-19] MEDS: FLUOXETINE HCL 20 MG CAP PO SCH (08:31)
[2019-03-19] MEDS: diazePAM 5 MG TABLET PO SCH ×2 (08:31→21:29)
--- NOTE | 2019-03-19 13:03 | Psychiatric Progress Note ---
Date of Service March 19, 2019 Impression / Recommendations Impression This 54-year-old woman who was admitted because of worsening anxiety and depression, particularly over the past 2 weeks. Her report is that at the time of her discharge from the behavioral health unit at [facility] in September 2018 she was doing "really well," and continued to do well in the community, but, over time, began to notice worsening anxiety and intermittent recurrences of depressed mood. She notes that for approximately the past 2 months she has been quite "nervous" and, for the most part, has also felt depressed with anhedonia, psychosocial withdrawal, mood irritability, fatigue, anergia, crying spells, and anxious distress. It appears possible that medication side effects over time may have contributed to her complaints including sedation and motoric slowing. (1) Generalized anxiety disorder with panic attacks: 03/17/19 -Discontinue diazepam 10 mg 3 times daily, as reported by the patient his admission, and reduce the dose of diazepam to 10 mg twice daily, consistent with the dose identified by her outpatient psychiatrist. -Consider adding quetiapine 25 mg twice a day and 50 mg at bedtime for anxiety, mood stabilization, adjunctive treatment for depression, and sleep. (With discontinuation of risperidone) -Consider buspirone. The patient indicates that she has taken buspirone in the past, does not recall whether it was effective, and says that although she cannot recall exactly why she discontinued it, she believes that it may have been because of a fear of associated weight gain. She has been offered some reassurances in this regard. 03/18 -Reduce Valium to 5 mg twice daily to reduce sedation. Given long half-life, there is a possibility that this became slowly more intoxicating over time at home dose. 03/19 -pt describing improved alertness on reduced valium so far (2) Extrapyramidal movement disorder, drug-induced: 03/17/19 -On examination today, the patient is found to have fairly pronounced cogwheel rigidity. This will be treated immediately with IM diphenhydramine, and then with Artane beginning at 1 mg this evening and 2 mg in the morning. The dose of Artane may need to be titrated further, depending on the patient's response. -The patient's complaints of increased anxiety and restlessness may have corresponded with concomitant increases in her her dosage of risperidone. Her dose of risperidone has been decreased to 2 mg at bedtime. -The patient's akathisia may be secondary to either risperidone or fluoxetine. We will evaluate the patient's response to antiparkinsonian agents and consider decreasing fluoxetine, if indicated. 03/18 -It remains unclear to me if she had, in fact, been taking a higher dose of the Risperdal at home. Before we reduce her dose any further, we will request nursing assistance to verify her last dispensed dose at [facility] in [facility] -No cogwheeling today. Describing improved restlessness following Benadryl and Artane yesterday however complains of increased drowsiness following those medications and will defer standing anticholinergic treatment for now. We may consider dose reduction of the Risperdal or possibly alternative agent with lower risk for EPS as suggested by Dr. Bear previously 03/19 - still trying to verify strength of most recent risperdal tabs dispensed by [facility]. nursing to f/u on this today. no evidence of EPS today (3) Major psychotic depression, recurrent: 03/17/19 -Provide individual, group, activity, and educational interventions, with goals that include developing improved coping strategies and relaxation techniques. -Continue fluoxetine 80 mg daily. As noted, fluoxetine may be contributing to the patient's extraparametal symptoms and, within this context, it may be necessary to decrease her dose of fluoxetine, depending upon her response to antiparkinsonian agents and other medication changes. -The patient's outpatient psychiatrist has advised is that the patient's correct dose of topiramate is 50 mg 3 times a day. We will offer the patient topiramate 50 mg in the morning and 100 mg at bedtime for mood stabilization. (It is our understanding that her insurance company has not authorized extended release topiramate.) 03/18 -Patient reports previous good response to the Prozac and will defer changes to that medication today -As she believes her long-standing maintenance dose of the Topamax was 75 mg nightly and in considering possible negative cognitive effects of higher doses of the medication will reduce the Topamax back to her former maintenance dose of 75 mg nightly presently 03/19 - mood improving today w/o adjustment to antidepressant Inventory Assets Strengths: Supportive family. Favorable education history. Motivated to recovery. Good insight. Needs: Recovery from recurrent depression, and generalized anxiety. There is also a past history of bulimia nervosa. The patient's report is that this is not currently an active problem. Risk Factors Assessment Male: No : Yes Do You Have Access To A Gun?: No Health Problems: Yes Mental Health Diagnoses: Yes Substance Use Disorders: No Previous Attempt: No Family History of Suicide: No Previous Psychiatric Hospitalization: Yes Hopelessness: No Smoker: No Protective Factors Assessment : Yes Responsible for Young Children: No Employed: No Stable Relationships: Yes Supportive Family: Yes Good Rapport with Provider: Yes Absence of Any Risk Factors Above: No Interval History Chief Complaint "I feel less drugged. Yesterday was a good day". Review of Systems Sleep Information Total Hours of Sleep: 7.5 Sleep Comments: pt on q-15 minute checks Meal Information Percent Meal Consumed - Breakfast: 100 Percent Meal Consumed - Lunch: 90 Percent Meal Consumed - Dinner: 100 Nutrition Comment: per meal log Subjective Subjective Patient was seen & assessed and interval progress reviewed with Treatment Team. Valium was reduced yesterday. No further changes made to the Risperdal. I have not been yet able to independently confirm that she was in fact taking a higher dose of the Risperdal as an outpatient. She denies dystonia or restlessness today. She describes feeling less foggy and less "drugged." Anxiety was modestly increased yesterday but tolerable on reduced Valium. She describes her mood as "a little anxious but definitely better." Had a good visit with her family yesterday. Rates her mood 6-7 out of 10 today. Feeling more optimistic. Physical Exam Psychiatric Orientation: alert and cooperative Apperance: appropriately dressed and appropriately groomed Eye Contact: good eye contact Motor Behavior: n EPS, n akathisia and n tremor Speech: normal rate/rhythm/volume of speech calm. smiles Mood: + anxious mood ("less") Thought Process: goal directed thought process and linear/logical thought process Thought Content: reality based without delusions Suicidal Thoughts: denies suicidal thoughts Homicidal Thoughts: denies homicidal thoughts Hallucinations: no auditory hallucinations and no visual hallucinations Cognition: attention grossly intact Insight: + fair insight Judgement: + fair judgement Vital Signs (Past 24 Hours) Last Vital Signs Temp 36.6 C 03/19/19 06:56 Pulse 74 03/19/19 06:56 Resp 16 03/19/19 06:56 BP 94/67 L 03/19/19 06:56 Pulse Ox 97 03/16/19 17:11 Results & Data Current Inpatient Medications Current Inpatient Medications: Current Inpatient Medications Acetaminophen (Tylenol) 650 mg PO Q4H PRN PRN Reason: Headache or Minor Fever Stop: 04/15/19 16:13 Al Hydrox/Mg Hydrox/Simethicone (Maalox) 30 ml PO Q4H PRN PRN Reason: GI Upset Stop: 04/15/19 16:13 Bismuth Subsalicylate (Kaopectate) 15 ml PO PRN PRN PRN Reason: Loose Stool Stop: 04/15/19 16:13 Diazepam (Valium) 5 mg PO BID ELISSA Stop: 04/17/19 20:59 Last Admin: 03/19/19 08:31 Dose: 5 mg Documented by: Fluoxetine HCl (Prozac) 80 mg PO QAM ELISSA Stop: 04/16/19 08:59 Last Admin: 03/19/19 08:31 Dose: 80 mg Documented by: Hydroxyzine HCl (Vistaril) 50 mg PO HSZ PRN PRN Reason: Insomnia Stop: 04/15/19 16:13 Hydroxyzine HCl (Vistaril) 25 mg PO Q4H PRN PRN Reason: Anxiety Stop: 04/15/19 16:13 Magnesium Hydroxide (Milk Of Magnesia) 30 ml PO DAILY PRN PRN Reason: Heartburn Stop: 04/15/19 16:13 Risperidone (Risperdal) 2 mg PO HS ELISSA Stop: 04/16/19 21:59 Last Admin: 03/18/19 21:27 Dose: 2 mg Documented by: Sodium Chloride ([place] Nasal) 1 - 2 sprays NA PRN PRN PRN Reason: Nasal Dryness/Congestion Stop: 04/15/19 16:13 Topiramate (Topamax) 75 mg PO HS ELISSA Stop: 04/17/19 21:59 Last Admin: 03/18/19 21:27 Dose: 75 mg Documented by: Post Discharge Appointments Primary Care Physician Name Of Family Doctor: Rhonda Fajardo Primary Care Provider Appointment Comment: [address], [place] [address] Psychiatrist Name of Psychiatrist: Edna Wilder Light Psychiatrist's Psychiatric Appointment Comment: [address] [facility] [address], [place] [address] Therapist Name of Therapist: Alec Palacio - Mario Cabrera Therapist's Therapy Appointment Comment: [address] [facility], [place] [address] Dredge Pumper Name of Dredge Pumper: None CPT Code CPT Code 04111
[2019-03-19 20:53] LABS: 7-Aminoclonaz, Confirm NEGATIVE NG/ML (CUTOFF=25); Hydro-Alp Ur, GC/MS NEGATIVE NG/ML (CUTOFF=25); Hydroxyethylflurazepam, Conf NEGATIVE NG/ML (CUTOFF=50); Hydroxytriazolam NEGATIVE NG/ML (CUTOFF=50); Lorazepam, Ur GC/MS 154 NG/ML (CUTOFF=50); Nordiazepam, Confirm 266 NG/ML (CUTOFF=50); Oxazepam Ur, GC/MS 477 NG/ML (CUTOFF=50); Temazepam, Confirm 978 NG/ML (CUTOFF=50)
[2019-03-19] MEDS: risperiDONE 2 MG TABLET PO SCH (21:29)
[2019-03-19] MEDS: TOPIRAMATE 25 MG TAB PO SCH (21:29)
[2019-03-20] MEDS: FLUOXETINE HCL 20 MG CAP PO SCH (08:49)
[2019-03-20] MEDS: diazePAM 5 MG TABLET PO SCH ×2 (08:49→21:57)
--- NOTE | 2019-03-20 10:39 | Psychiatric Progress Note ---
Date of Service March 20, 2019 Impression / Recommendations Impression This 54-year-old woman who was admitted because of worsening anxiety and depression over the past 2 weeks. She reports that after discharge from [facility] in September 2018 she was doing "really well," but, over time developed worsening anxiety and intermittent depressed mood, and then sedation and inability to function from medication. She reports taking lower doses than what is prescribed of risperidone and topiramate, and is confused about her medications. Her diazepam has been decreased here due to oversedation. She continues to report feeling unsafe outside of the hospital, and ongoing inpatient treatment is indicated to continue to adjust medications, address severe anxiety and mood symptoms, and limit impairing side effects of medication. (1) Generalized anxiety disorder with panic attacks: 03/17/19 -Discontinue diazepam 10 mg 3 times daily, as reported by the patient his admission, and reduce the dose of diazepam to 10 mg twice daily, consistent with the dose identified by her outpatient psychiatrist. -Consider adding quetiapine 25 mg twice a day and 50 mg at bedtime for anxiety, mood stabilization, adjunctive treatment for depression, and sleep. (With discontinuation of risperidone) -Consider buspirone. The patient indicates that she has taken buspirone in the past, does not recall whether it was effective, and says that although she cannot recall exactly why she discontinued it, she believes that it may have been because of a fear of associated weight gain. She has been offered some reassurances in this regard. 03/18 -Reduce Valium to 5 mg twice daily to reduce sedation. Given long half-life, there is a possibility that this became slowly more intoxicating over time at home dose. 03/19 -pt describing improved alertness on reduced valium so far. 03/20 - Decrease diazepam to 2.5 mg twice daily at patient's request. She continues to report sedation and cognitive impairment. Reviewed that many of the as needed medications for anxiety can cause these effects, and the need to balance the use of medications with other strategies for managing her anxiety. Benzodiazepine levels were significantly elevated on admission, so advised patient that her cognitive symptoms will likely improve with a lower dose. Present on Admission?: Yes (2) Major psychotic depression, recurrent: 03/17/19 -Provide individual, group, activity, and educational interventions, with goals that include developing improved coping strategies and relaxation techniques. -Continue fluoxetine 80 mg daily. As noted, fluoxetine may be contributing to the patient's extraparametal symptoms and, within this context, it may be necessary to decrease her dose of fluoxetine, depending upon her response to antiparkinsonian agents and other medication changes. -The patient's outpatient psychiatrist has advised is that the patient's correct dose of topiramate is 50 mg 3 times a day. We will offer the patient topiramate 50 mg in the morning and 100 mg at bedtime for mood stabilization. (It is our understanding that her insurance company has not authorized extended release topiramate.) 03/18 -Patient reports previous good response to the Prozac and will defer changes to that medication today -As she believes her long-standing maintenance dose of the Topamax was 75 mg nightly and in considering possible negative cognitive effects of higher doses of the medication will reduce the Topamax back to her former maintenance dose of 75 mg nightly presently 03/19 - mood improving today w/o adjustment to antidepressant 03/20 -Called Dr. Hassan to coordinate care -left message requesting a callback. Would like to clarify medication doses with him, and discuss patient's confusion and difficulty with her medication dosing. Present on Admission?: Yes (3) Extrapyramidal movement disorder, drug-induced: 03/17/19 -On examination today, the patient is found to have fairly pronounced cogwheel rigidity. This will be treated immediately with IM diphenhydramine, and then with Artane beginning at 1 mg this evening and 2 mg in the morning. The dose of Artane may need to be titrated further, depending on the patient's response. -The patient's complaints of increased anxiety and restlessness may have corresponded with concomitant increases in her her dosage of risperidone. Her dose of risperidone has been decreased to 2 mg at bedtime. -The patient's akathisia may be secondary to either risperidone or fluoxetine. We will evaluate the patient's response to antiparkinsonian agents and consider decreasing fluoxetine, if indicated. 03/18 -It remains unclear to me if she had, in fact, been taking a higher dose of the Risperdal at home. Before we reduce her dose any further, we will request nursing assistance to verify her last dispensed dose at [facility] in [facility] -No cogwheeling today. Describing improved restlessness following Benadryl and Artane yesterday however complains of increased drowsiness following those medications and will defer standing anticholinergic treatment for now. We may consider dose reduction of the Risperdal or possibly alternative agent with lower risk for EPS as suggested by Dr. Bear previously 03/19 - still trying to verify strength of most recent risperdal tabs dispensed by pharmacy. nursing to f/u on this today. no evidence of EPS today Inventory Assets Strengths: Supportive family. Favorable education history. Motivated to recovery. Good insight. Needs: Recovery from recurrent depression, and generalized anxiety. There is also a past history of bulimia nervosa. The patient's report is that this is not currently an active problem. Risk Factors Assessment Male: No : Yes Do You Have Access To A Gun?: No Health Problems: Yes Mental Health Diagnoses: Yes Substance Use Disorders: No Previous Attempt: No Family History of Suicide: No Previous Psychiatric Hospitalization: Yes Hopelessness: No Smoker: No Protective Factors Assessment : Yes Responsible for Young Children: No Employed: No Stable Relationships: Yes Supportive Family: Yes Good Rapport with Provider: Yes Absence of Any Risk Factors Above: No Interval History Chief Complaint "Well the weekend was frustrating, nothing was changed". Review of Systems Sleep Information Total Hours of Sleep: 7.75 Sleep Comments: pt on q-15 minute checks Meal Information Percent Meal Consumed - Breakfast: 100 Percent Meal Consumed - Lunch: 90 Percent Meal Consumed - Dinner: 90 Nutrition Comment: per meal log Subjective Subjective Patient was seen & assessed and interval progress reviewed with treatment team. Staff reports she is attending and participating in group, and talked about feeling like a burden to her friends and family. She remains depressed, anxious, and tearful at times. On my assessment, she reports she still feels oversedated, slowed, and confused, which she attributes to medications. She states she has not been feeling safe enough to drive given the level of cognitive impairment, and wants to continue reducing the dose of Valium. She denies suicidal thoughts, but states she does not feel safe leaving the hospital, and she cannot function or think clearly. She continues to endorse anxiety, but describes it as "mild, but still there." Mood is "okay," slightly improved from admission. She feels very frustrated with her perceived lack of improvement and confusion about her medications. We reviewed all of her prescriptions as detailed in the external med history, and she continues to insist that they are prescribed at different doses. She does admit that she has Topamax left over at the end of each month, and says she "never thought about it" when asked if this might of been an indicator that she was not taking the full prescribed dose. She agreed to further decrease her Valium to 2.5 mg twice daily today. Physical Exam Psychiatric Orientation: alert and cooperative Apperance: appropriately dressed, + disheveled and appeared stated age Hair is unkempt and tangled Eye Contact: + fair eye contact Motor Behavior: steady gait and station and + psychomotor retardation (Moving slowly) Speech is slightly slowed Affect: + depressed affect and + constricted affect Mood: + depressed mood Thought Process: + perseveration (On her medications, including confusion about the correct prescribed doses and side effects) Thought Content: + cognitive distortions Suicidal Thoughts: denies suicidal thoughts Homicidal Thoughts: denies homicidal thoughts Hallucinations: no auditory hallucinations and no visual hallucinations Cognition: + recent memory not intact Insight: + impaired insight Judgement: + impaired judgement Vital Signs (Past 24 Hours) Last Vital Signs Temp 36.5 C 03/20/19 07:05 Pulse 72 03/20/19 07:06 Resp 16 03/20/19 07:05 BP 82/54 L 03/20/19 07:06 Pulse Ox 97 03/16/19 17:11 Results & Data Laboratory Results Laboratory Results - last 24 hr 03/16/19 13:42 U OH-Alprazolam Confrm NEGATIVE 7-Amino Clonazepam NEGATIVE Ur Nordiazepam Confirm 266 A U OH-ethylflurazepam NEGATIVE U Lorazepam Cnf GC/MS 154 A U Oxazepam Confm GC/MS 477 A Ur Temazepam Confirm 978 A U OH-Triazolam Confirm NEGATIVE U OH-Midazolam Confirm NEGATIVE Current Inpatient Medications Current Inpatient Medications: Current Inpatient Medications Acetaminophen (Tylenol) 650 mg PO Q4H PRN PRN Reason: Headache or Minor Fever Stop: 04/15/19 16:13 Al Hydrox/Mg Hydrox/Simethicone (Maalox) 30 ml PO Q4H PRN PRN Reason: GI Upset Stop: 04/15/19 16:13 Bismuth Subsalicylate (Kaopectate) 15 ml PO PRN PRN PRN Reason: Loose Stool Stop: 04/15/19 16:13 Diazepam (Valium) 5 mg PO BID ELISSA Stop: 04/17/19 20:59 Last Admin: 03/20/19 08:49 Dose: 5 mg Documented by: Fluoxetine HCl (Prozac) 80 mg PO QAM ELISSA Stop: 04/16/19 08:59 Last Admin: 03/20/19 08:49 Dose: 80 mg Documented by: Hydroxyzine HCl (Vistaril) 50 mg PO HSZ PRN PRN Reason: Insomnia Stop: 04/15/19 16:13 Hydroxyzine HCl (Vistaril) 25 mg PO Q4H PRN PRN Reason: Anxiety Stop: 04/15/19 16:13 Last Admin: 03/19/19 20:37 Dose: 25 mg Documented by: Magnesium Hydroxide (Milk Of Magnesia) 30 ml PO DAILY PRN PRN Reason: Heartburn Stop: 04/15/19 16:13 Risperidone (Risperdal) 2 mg PO HS [facility] Stop: 04/16/19 21:59 Last Admin: 03/19/19 21:29 Dose: 2 mg Documented by: Sodium Chloride (Villalba Nasal) 1 - 2 sprays NA PRN PRN PRN Reason: Nasal Dryness/Congestion Stop: 04/15/19 16:13 Topiramate (Topamax) 75 mg PO HS ELISSA Stop: 04/17/19 21:59 Last Admin: 03/19/19 21:29 Dose: 75 mg Documented by: Post Discharge Appointments Primary Care Physician Name Of Family Doctor: Rhonda Parkdale Lali Fajardo Primary Care Provider Appointment Comment: [address] [facility], [place] [address] Psychiatrist Name of Psychiatrist: Dr. Hassan, [facility] Psychiatrist's Psychiatric Appointment Comment: [id number], [place] [address] Therapist Name of Therapist: [facility] Mario Cabrera Therapist's Therapy App[facility]ment Comment[facility] [address] [facility] [place] [address] Bilingual Recruiter Name of Bilingual Recruiter: None CPT Code CPT Code 93657
[2019-03-20] MEDS: MAGNESIUM HYDROXIDE SUSP 30 ML UDC PO PRN (13:37)
[2019-03-20] MEDS: risperiDONE 2 MG TABLET PO SCH (21:58)
[2019-03-20] MEDS: TOPIRAMATE 25 MG TAB PO SCH (21:58)
[2019-03-21] MEDS: FLUOXETINE HCL 20 MG CAP PO SCH (08:27)
[2019-03-21] MEDS: diazePAM 5 MG TABLET PO SCH ×2 (08:28→21:16)
[2019-03-21] MEDS: MAGNESIUM HYDROXIDE SUSP 30 ML UDC PO PRN (09:13)
--- NOTE | 2019-03-21 14:04 | Psychiatric Progress Note ---
Date of Service March 21, 2019 Impression / Recommendations Impression This 54-year-old woman who was admitted because of worsening anxiety and depression over the past 2 weeks. She reports that after discharge from [facility] in September 2018 she was doing "really well," but, over time developed worsening anxiety and intermittent depressed mood, and then sedation and inability to function from medication. She identifies having an "empty nest" given the graduation and moving out of her sons as a possible trigger for the recent worsening of her symptoms. She reports taking lower doses than what is prescribed of risperidone and topiramate, and is confused about her medications. Her diazepam has been decreased here due to oversedation. Her symptoms are improving, she found the family meeting to be helpful, she is working on safe discharge planning. She continues to report feeling unsafe outside of the hospital, and ongoing inpatient treatment is indicated to continue to adjust medications, address severe anxiety and mood symptoms, and limit impairing side effects of medication. The clinical history and patient symptoms were discussed with psychiatrist, Dr. Carias, who was involved with the medical decision making and medication management in this patient's care. (1) Generalized anxiety disorder with panic attacks: 03/17/19 -Discontinue diazepam 10 mg 3 times daily, as reported by the patient his admission, and reduce the dose of diazepam to 10 mg twice daily, consistent with the dose identified by her outpatient psychiatrist. -Consider adding quetiapine 25 mg twice a day and 50 mg at bedtime for an xiety, mood stabilization, adjunctive treatment for depression, and sleep. (With discontinuation of risperidone) -Consider buspirone. The patient indicates that she has taken buspirone in the past, does not recall whether it was effective, and says that although she cannot recall exactly why she discontinued it, she believes that it may have been because of a fear of associated weight gain. She has been offered some reassurances in this regard. 03/18 -Reduce Valium to 5 mg twice daily to reduce sedation. Given long half-life, there is a possibility that this became slowly more intoxicating over time at home dose. 03/19 -pt describing improved alertness on reduced valium so far. 03/20 - Decrease diazepam to 2.5 mg twice daily at patient's request. She continues to report sedation and cognitive impairment. Reviewed that many of the as needed medications for anxiety can cause these effects, and the need to balance the use of medications with other strategies for managing her anxiety. Benzodiazepine levels were significantly elevated on admission, so advised patient that her cognitive symptoms will likely improve with a lower dose. 03/21 - Patient on diazepam 2.5 mg twice daily, and tolerating well given improvement in both alertness while minimizing anxiety symptoms. Patient requested not to reduce the dose further tonight. She understands Risks associated with benzodiazepines, and would eventually like to discuss discontinuation altogether with her outpatient psychiatrist. PRN hydroxyzine ordered but has not been requested recently by the patient. (2) Major psychotic depression, recurrent: 03/17/19 -Provide individual, group, activity, and educational interventions, with goals that include developing improved coping strategies and relaxation techniques. -Continue fluoxetine 80 mg daily. As noted, fluoxetine may be contributing to the patient's extraparametal symptoms and, within this context, it may be necessary to decrease her dose of fluoxetine, depending upon her response to antiparkinsonian agents and other medication changes. -The patient's outpatient psychiatrist has advised is that the patient's correct dose of topiramate is 50 mg 3 times a day. We will offer the patient topiramate 50 mg in the morning and 100 mg at bedtime for mood stabilization. (It is our understanding that her insurance company has not authorized extended release topiramate.) 03/18 -Patient reports previous good response to the Prozac and will defer changes to that medication today -As she believes her long-standing maintenance dose of the Topamax was 75 mg nightly and in considering possible negative cognitive effects of higher doses of the medication will reduce the Topamax back to her former maintenance dose of 75 mg nightly presently 03/19 - mood improving today w/o adjustment to antidepressant 03/20 -Called Dr. Hassan to coordinate care -left message requesting a callback. Would like to clarify medication doses with him, and discuss patient's confusion and difficulty with her medication dosing. 03/21 -Patient states improvement in mood. Although she still has a relatively flat affect, she does smile appropriately throughout the discussion. Would continue the fluoxetine 80 mg daily and risperidone 2 mg nightly at present, as patient tolerating these respective doses well, without evidence of extra-pyramidal side effects. (3) Extrapyramidal movement disorder, drug-induced: 03/17/19 -On examination today, the patient is found to have fairly pronounced cogwheel rigidity. This will be treated immediately with IM diphenhydramine, and then with Artane beginning at 1 mg this evening and 2 mg in the morning. The dose of Artane may need to be titrated further, depending on the patient's response. -The patient's complaints of increased anxiety and restlessness may have corresponded with concomitant increases in her her dosage of risperidone. Her dose of risperidone has been decreased to 2 mg at bedtime. -The patient's akathisia may be secondary to either risperidone or fluoxetine. We will evaluate the patient's response to antiparkinsonian agents and consider decreasing fluoxetine, if indicated. 03/18 -It remains unclear to me if she had, in fact, been taking a higher dose of the Risperdal at home. Before we reduce her dose any further, we will request nursing assistance to verify her last dispensed dose at [facility] in [facility] -No cogwheeling today. Describing improved restlessness following Benadryl and Artane yesterday however complains of increased drowsiness following those medications and will defer standing anticholinergic treatment for now. We may consider dose reduction of the Risperdal or possibly alternative agent with lower risk for EPS as suggested by Dr. Bear previously 03/19 - still trying to verify strength of most recent risperdal tabs dispensed by pharmacy. nursing to f/u on this today. no evidence of EPS today 03/21 - EPS absent on current regimen of diazepam, fluoxetine, risperidone, topiramate. Inventory Assets Strengths: Supportive family. Favorable education history. Motivated to recovery. Good insight. Needs: Recovery from recurrent depression, and generalized anxiety. There is also a past history of bulimia nervosa. The patient's report is that this is not currently an active problem. Risk Factors Assessment Male: No : Yes Do You Have Access To A Gun?: No Health Problems: Yes Mental Health Diagnoses: Yes Substance Use Disorders: No Previous Attempt: No Family History of Suicide: No Previous Psychiatric Hospitalization: Yes Hopelessness: No Smoker: No Protective Factors Assessment : Yes Responsible for Young Children: No Employed: No Stable Relationships: Yes Supportive Family: Yes Good Rapport with Provider: Yes Absence of Any Risk Factors Above: No Interval History Chief Complaint "Making progress. Feeling less anxious and jumpy.". Review of Systems Sleep Information Total Hours of Sleep: 8.5 Sleep Comments: pt on q-15 minute checks Meal Information Percent Meal Consumed - Breakfast: 100 Percent Meal Consumed - Lunch: 100 Percent Meal Consumed - Dinner: 100 Nutrition Comment: per meal log Subjective Subjective Patient was seen & assessed and interval progress reviewed with the Treatment Team. Staff note the patient was feeling anxious yesterday evening. Initially she was unable to identify the source of Her anxiety, but later she admitted she was concerned about the decrease in her Valium dose. However nursing staff note that the patient had no difficulty with sleep overnight. They also note that the patient has attended all the groups and has had positive interactions with her peers, with a brightened affect with interactions. Staff note that one of her anxiety contributors might be the fact that both of her sons have graduated and are moving out from the family home. When not participating in programming the patient spent the majority of her time lying in her room until it was a mealtime. She continues to complain of some grogginess although staff notes that this is improved from previous days. In discussion with the patient, she notes improvement in her anxiety and her energy is better with the lower dose of Valium. She feels the grogginess "might still be there a little bit, but it is better than before" and that she is feeling less jumpy and agitated. She states her eventual goal may be to come off the Valium completely, although she hesitates stating "I do not think it want to do that right now." She felt she slept okay overnight, realizing some of her nighttime medications probably still helped her. Today she rates her mood as 7 and "Okay, maybe happy." She is now able to contemplate being discharged because she feels she has made "good progress." When asked what her plans will be upon discharge she states "I will probably see my psychiatrist pretty quickly, and then I see my therapist once a week." When asked about what she we will do to combat anxiety in the future, patient lists meditating, reading, breathing exercises, puzzles, and walking her dogs. When asked what she will do in her free time, especially as her sons are no longer there, she admits to having difficulty with this saying, "it is hard to find things to do while everyone else is working. That is when I get the most anxious and I worry." She further goes on to say that she is to like cooking but with her sons gone will probably live off "the bare minimum like salads." She states she has a good appetite and is tolerating meals well here. Patient continues to deny SI, HI, SIB, a/v Hallucinations, racing thoughts, OCD behaviors, or paranoid thoughts. Physical Exam Psychiatric Orientation: alert, oriented x 3 and cooperative Apperance: appropriately dressed, + disheveled and appeared stated age Eye Contact: + fair eye contact Motor Behavior: steady gait and station and + psychomotor retardation (Moving slowly); + abnormal motor movements (No dystonia or cogwheeling in upper extremities), n EPS, n akathisia and n tremor Speech: normal rate/rhythm/volume of speech Affect: + anxious affect, + blunted affect, + constricted affect and mood congruent with affect Mood: + anxious mood ("less") Thought Process: goal directed thought process, linear/logical thought process and clear/coherent thought process Thought Content: + cognitive distortions and reality based without delusions Suicidal Thoughts: denies suicidal thoughts, denies suicidal plan and denies suicidal intent Homicidal Thoughts: denies homicidal thoughts Hallucinations: no auditory hallucinations, no visual hallucinations, no tactile hallucinations and no gustatory hallucinations Cognition: remote memory grossly intact, attention grossly intact and language grossly intact Estimated Intelligence: average estimated intelligence Insight: good insight Judgement: + fair judgement Vital Signs (Past 24 Hours) Last Vital Signs Temp 36.4 C L 03/21/19 06:47 Pulse 71 03/21/19 06:47 Resp 18 03/21/19 06:47 BP 96/66 L 03/21/19 06:47 Pulse Ox 97 03/16/19 17:11 Results & Data Current Inpatient Medications Current Inpatient Medications: Current Inpatient Medications Acetaminophen (Tylenol) 650 mg PO Q4H PRN PRN Reason: Headache or Minor Fever Stop: 04/15/19 16:13 Al Hydrox/Mg Hydrox/Simethicone (Maalox) 30 ml PO Q4H PRN PRN Reason: GI Upset Stop: 04/15/19 16:13 Bismuth Subsalicylate (Kaopectate) 15 ml PO PRN PRN PRN Reason: Loose Stool Stop: 04/15/19 16:13 Diazepam (Valium) 2.5 mg PO BID ELISSA Stop: 04/19/19 20:59 Last Admin: 03/21/19 08:28 Dose: 2.5 mg Documented by: Fluoxetine HCl (Prozac) 80 mg PO QAM ELISSA Stop: 04/16/19 08:59 Last Admin: 03/21/19 08:27 Dose: 80 mg Documented by: Hydroxyzine HCl (Vistaril) 50 mg PO HSZ PRN PRN Reason: Insomnia Stop: 04/15/19 16:13 Hydroxyzine HCl (Vistaril) 25 mg PO Q4H PRN PRN Reason: Anxiety Stop: 04/15/19 16:13 Last Admin: 03/19/19 20:37 Dose: 25 mg Documented by: Magnesium Hydroxide (Milk Of Magnesia) 30 ml PO DAILY PRN PRN Reason: Heartburn Stop: 04/15/19 16:13 Last Admin: 03/21/19 09:13 Dose: 30 ml Documented by: Risperidone (Risperdal) 2 mg PO HS ELISSA Stop: 04/16/19 21:59 Last Admin: 03/20/19 21:58 Dose: 2 mg Documented by: Sodium Chloride ([place] Nasal) 1 - 2 sprays NA PRN PRN PRN Reason: Nasal Dryness/Congestion Stop: 04/15/19 16:13 Topiramate (Topamax) 75 mg PO HS ELISSA Stop: 04/17/19 21:59 Last Admin: 03/20/19 21:58 Dose: 75 mg Documented by: Post Discharge Appointments Primary Care Physician Name Of Family Doctor: Rhonda Rossmoyne Lali Fajardo Primary Care Provider Appointment Comment: [address] [facility], [place] [address] Psychiatrist Name of Psychiatrist: Dr. Hassan [facility] Psychiatrist's Psychiatric Appointment Comment: [address], [place] [address] Therapist Name of Therapist: Alec Palacio - Mario Cabrera Therapist's Therapy Appointment Comment: [address] [facility] [place] [address] Windrower Operator Name of Windrower Operator: None Resident Activity Tracking Resident Involvement: Resident Care Provided Care Provided: Adult Hospital Medicine
[2019-03-21] MEDS: risperiDONE 2 MG TABLET PO SCH (21:17)
[2019-03-21] MEDS: TOPIRAMATE 25 MG TAB PO SCH (21:17)
[2019-03-22] MEDS: FLUOXETINE HCL 20 MG CAP PO SCH (09:05)
[2019-03-22] MEDS: diazePAM 5 MG TABLET PO SCH (09:05)
--- NOTE | 2019-03-22 09:54 | Discharge Summary ---
Date of Service March 22, 2019 History of Present Illness The patient is a 54 year old female who presented to the ED for a mental health evaluation on the afternoon of 03/16/19. The patient has not known history of major depression, recurrent, severe and generalized anxiety with panic. She is known to the behavioral health unit from a previous admission to the hospital in September of this year. The patient reports that she was doing "really well" at the time of her discharge in September, and that she continued to do well until approximately 2 months ago, at which point she began to notice worsening anxiety with alternating levels of depression. She notes that for the past 2 weeks, her anxiety level worsened fairly dramatically. The patient does not identify any precipitating factors, but does say that she felt that her psychiatric medications may be "too strong," or "may have built up over time," so that she was experiencing excess sedation, a lack of mental acuity, and a pronounced restless, nervous feeling that is present "all the time." She indicates that her dose of risperidone, which had been 1 mg twice a day at the time of discharge from the behavioral health unit in September was titrated to a dose that she believes was 2 mg in the morning and 5 mg at bedtime. Because of the sensation of being overly sedated, she independently discontinue the 2 mg risperidone dose in the morning, but continue the 5 mg dose at bedtime. The patient complains of tearful episodes and notes that the only reason why she is sleeping is because of her medications. The patients reportedly stated that the patient told him today that she cant live like this anymore. The patient denies missing any of her medications, suicidal ideations, homicidal ideations, and ever trying to harm herself in the past. The patient denies issues with finances, relationships, social situations, friends, family, work, changes in her environment, and having any stressors, with one exception. That exception is the fact that her older son graduated from college this spring, and her younger son graduated from high school, also the spring. However, the patient's anxiety levels had substantially exacerbated long before either of these events. Physical Exam Psychiatric Orientation: alert, oriented x 3 and cooperative Apperance: appropriately dressed, appropriately groomed and appeared stated age Eye Contact: good eye contact Motor Behavior: steady gait and station and no abnormal motor movements Speech: normal rate/rhythm/volume of speech Affect: euthymic affect (Mildly blunted, but improved from admission.) and mood congruent with affect Mood: no depressed mood and no anxious mood "Much better." Thought Process: goal directed thought process Thought Content: reality based without delusions Suicidal Thoughts: + reports suicidal thoughts Homicidal Thoughts: + reports homicidal thoughts Hallucinations: no auditory hallucinations Cognition: recent memory grossly intact, attention grossly intact and language grossly intact Insight: good insight Judgement: good judgement Vital Signs (Past 24 Hours) Last Vital Signs Temp 36.6 C 03/22/19 07:01 Pulse 80 03/22/19 07:01 Resp 16 03/22/19 07:01 BP 87/58 L 03/22/19 07:01 Pulse Ox 97 03/16/19 17:11 Principal Diagnosis Generalized anxiety disorder with panic attacks Major depressive disorder, recurrent, severe without psychosis History of bulimia Psychiatric Data The patient was hospitalized on our unit for 6 days. On admission, her diazepam and risperidone doses were decreased due to her reports of over sedation and cognitive impairment, as well as pronounced cogwheel rigidity on exam, while fluoxetine was continued. She received diphenhydramine and then trihexyphenidyl for EPS, with good response. She also reported increased anxiety and restlessness, and there was concern for akathisia, which also improved on the reduced dose of risperidone. Her diazepam was subsequently reduced, at her request, to 5 mg twice daily, and then to 2.5 mg twice daily, as she continued to feel over sedated and slowed. She reported significant improvement in energy, focus, and alertness on the reduced dose, and denied symptoms of anxiety. She expressed confusion about the correct prescribed doses of her medications, and they were clarified with her outpatient psychiatrist's office. She stated a preference to take topiramate 75 mg at at bedtime (rather than 50 mg 3 times daily as prescribed), as she experienced cognitive side effects with higher doses. She consistently denied thoughts of harming herself or anyone else and psychotic symptoms throughout her stay. She was noted to be eating and sleeping well, attending and participating in groups and therapy, and working on coping skills, including yoga and socialization with peers. She had a family meeting with her and the group social worker on 03/17/2019; they reviewed signs of worsening depression and anxiety, and ways that her family can help support her. She was given information about mindfulness and meditation, as she has found it helpful in the past. She and her both reported concerns that she is overmedicated, as she has been somnolent and cognitively impaired since medications were increased. Day of Discharge Assessment Staff report the patient is attending and participating in groups and therapy, taking medications as prescribed, and interacting appropriately with staff and peers. She demonstrates improved affect, it is reporting hopefulness and improve mood. She rated her mood a 7 out of 10, and is requesting discharge. On my assessment, the patient reports her mood is "much better," anxiety has improved significantly, and denies symptoms of panic, cognitive impairment, and daytime sedation. She reports improved energy, focus, and interest. She denies thoughts of harming herself or anyone else. She is requesting discharge and looking forward to returning home to spend time with her son who just returned home from college. She anticipates that she will have some stress due to "my house being a mess, and my dog chews on my shoes," but feels these things are manageable, and is able to review her coping skills, including walking her dog, spending time with her friends (they play tennis and then go out to eat weekly), yoga, meditation, and time with family. She denies any safety concerns with discharge, denies side effects to medications, and is willing to follow up with her outpatient clinicians. Transition of Care Transition Of Care Record: was reviewed with the patient Advance Directives Advance Directives Information Provided: Yes Advance Directives: No Mental Health Advance Directive: No Advance Directives on File: No Living Will: No Power of Digital Project Coordinator: No Advance Directives Reason:: Declines as Mental Health Visit. Risk Factors Assessment Risk factors were mitigated by admission to the inpatient unit, adjusting medications to ameliorate side effects, coordination of care with outpatient psychiatrist, involving her and a family meeting, involving her in groups and therapy, working on healthy coping skills and a discharge safety plan, and exploring ways to utilize her support network when she is decompensating for earlier intervention. She has demonstrated improvement in mood and anxiety, has consistently denied thoughts of harming herself or others, is tolerating medications well, and performing ADLs independently. She is requesting discharge, and as she is no longer at acute risk of harm to herself, can be managed as an outpatient at this time. She does not have significant risk factors for harm to others. Male: No : Yes Do You Have Access To A Gun?: No Health Problems: Yes Mental Health Diagnoses: Yes Substance Use Disorders: No Previous Attempt: No Family History of Suicide: No Previous Psychiatric Hospitalization: Yes Hopelessness: No Smoker: No Protective Factors Assessment : Yes Responsible for Young Children: No Employed: No Stable Relationships: Yes Supportive Family: Yes Good Rapport with Provider: Yes Absence of Any Risk Factors Above: No Tobacco Cessation at Discharge Tobacco Cessation Medication Prescribed at Discharge: Not Applicable/Non-Smoker Total Time Total Time Spent: Greater Than 30 Minutes Total Time Includes: Examination of the patient, Discharge Planning and Medication Reconciliation Discharge Data Lab Results 03/16/19 03/16/19 03/16/19 13:42 13:42 13:42 WBC RBC Hgb Hct MCV MCH MCHC RDW Std Deviation RDW Coeff of Lloyd Plt Count MPV Immature Gran % (Auto) Neut % (Auto) Lymph % (Auto) Sterling % (Auto) Eos % (Auto) Baso % (Auto) Immature Gran # (Auto) Neut # (Auto) Lymph # (Auto) Sterling # (Auto) Eos # (Auto) Baso # (Auto) Sodium Potassium Chloride Carbon Dioxide Anion Gap BUN Creatinine Est Cr Clr Drug Dosing Est GFR ( Amer) Est GFR (Non-Af Amer) BUN/Creatinine Ratio Glucose Calcium Total Bilirubin AST ALT Alkaline Phosphatase Total Protein Albumin Globulin Albumin/Globulin Ratio TSH Urine Color Yellow Urine Appearance Clear Urine pH 6.5 Ur Specific [place] 1.010 Urine Protein Negative Urine Glucose (UA) Negative Urine Ketones Negative Urine Blood Negative Urine Nitrite Negative Urine Bilirubin Negative Urine Urobilinogen Negative Ur Leukocyte Esterase Trace H Urine WBC (Auto) 1-5 Urine RBC (Auto) 0-4 U Hyaline Cast (Auto) 0 U Epithel Cells (Auto) 5-10 H Urine Bacteria (Auto) Negative Salicylates Urine Opiates Screen Neg Ur Methadone, Qual Neg Acetaminophen Urine Barbiturates Neg Ur Phencyclidine (PCP) Neg U Amphetamin/Meth Scrn Neg MDMA (Ecstasy) Screen Neg U OH-Alprazolam Confrm NEGATIVE U Benzodiazepines Scrn Pos H 7-Amino Clonazepam NEGATIVE Ur Nordiazepam Confirm 266 A U OH-ethylflurazepam NEGATIVE U Lorazepam Cnf GC/MS 154 A U Oxazepam Confm GC/MS 477 A Ur Temazepam Confirm 978 A U OH-Triazolam Confirm NEGATIVE U OH-Midazolam Confirm NEGATIVE Ur Cocaine Metabolite Neg U Marijuana (THC) Screen Neg Ethyl Alcohol mg/dL 03/16/19 03/16/19 03/16/19 14:17 14:17 14:17 WBC 6.30 RBC 4.37 Hgb 13.0 Hct 37.8 MCV 86.5 MCH 29.7 MCHC 34.4 RDW Std Deviation 41.8 RDW Coeff of Lloyd 13.2 Plt Count 275 MPV 9.6 Immature Gran % (Auto) 0.2 Neut % (Auto) 69.2 Lymph % (Auto) 21.6 Sterling % (Auto) 8.7 Eos % (Auto) 0.0 Baso % (Auto) 0.3 Immature Gran # (Auto) 0.01 Neut # (Auto) 4.36 Lymph # (Auto) 1.36 Sterling # (Auto) 0.55 Eos # (Auto) 0.00 Baso # (Auto) 0.02 Sodium 141 Potassium 4.2 Chloride 109 H Carbon Dioxide 28 Anion Gap 4.0 BUN 12 Creatinine 0.79 Est Cr Clr Drug Dosing 83.1 Est GFR ( Amer) 97.0 Est GFR (Non-Af Amer) 83.7 BUN/Creatinine Ratio 14.7 Glucose 89 Calcium 9.2 Total Bilirubin 0.3 AST 25 ALT 45 Alkaline Phosphatase 79 Total Protein 7.5 Albumin 3.8 Globulin 3.7 Albumin/Globulin Ratio 1.0 TSH 1.650 Urine Color Urine Appearance Urine pH Ur Specific [place] Urine Protein Urine Glucose (UA) Urine Ketones Urine Blood Urine Nitrite Urine Bilirubin Urine Urobilinogen Ur Leukocyte Esterase Urine WBC (Auto) Urine RBC (Auto) U Hyaline Cast (Auto) U Epithel Cells (Auto) Urine Bacteria (Auto) Salicylates < 1.7 L Urine Opiates Screen Ur Methadone, Qual Acetaminophen < 2 L Urine Barbiturates Ur Phencyclidine (PCP) U Amphetamin/Meth Scrn MDMA (Ecstasy) Screen U OH-Alprazolam Confrm U Benzodiazepines Scrn 7-Amino Clonazepam Ur Nordiazepam Confirm U OH-ethylflurazepam U Lorazepam Cnf GC/MS U Oxazepam Confm GC/MS Ur Temazepam Confirm U OH-Triazolam Confirm U OH-Midazolam Confirm Ur Cocaine Metabolite U Marijuana (THC) Screen Ethyl Alcohol mg/dL 03/16/19 14:17 WBC RBC Hgb Hct MCV MCH MCHC RDW Std Deviation RDW Coeff of Lloyd Plt Count MPV Immature Gran % (Auto) Neut % (Auto) Lymph % (Auto) Sterling % (Auto) Eos % (Auto) Baso % (Auto) Immature Gran # (Auto) Neut # (Auto) Lymph # (Auto) Sterling # (Auto) Eos # (Auto) Baso # (Auto) Sodium Potassium Chloride Carbon Dioxide Anion Gap BUN Creatinine Est Cr Clr Drug Dosing Est GFR ( Amer) Est GFR (Non-Af Amer) BUN/Creatinine Ratio Glucose Calcium Total Bilirubin AST ALT Alkaline Phosphatase Total Protein Albumin Globulin Albumin/Globulin Ratio TSH Urine Color Urine Appearance Urine pH Ur Specific [place] Urine Protein Urine Glucose (UA) Urine Ketones Urine Blood Urine Nitrite Urine Bilirubin Urine Urobilinogen Ur Leukocyte Esterase Urine WBC (Auto) Urine RBC (Auto) U Hyaline Cast (Auto) U Epithel Cells (Auto) Urine Bacteria (Auto) Salicylates Urine Opiates Screen Ur Methadone, Qual Acetaminophen Urine Barbiturates Ur Phencyclidine (PCP) U Amphetamin/Meth Scrn MDMA (Ecstasy) Screen U OH-Alprazolam Confrm U Benzodiazepines Scrn 7-Amino Clonazepam Ur Nordiazepam Confirm U OH-ethylflurazepam U Lorazepam Cnf GC/MS U Oxazepam Confm GC/MS Ur Temazepam Confirm U OH-Triazolam Confirm U OH-Midazolam Confirm Ur Cocaine Metabolite U Marijuana (THC) Screen Ethyl Alcohol mg/dL < 3.0 Hospital Course (1) Generalized anxiety disorder with panic attacks: 03/17/19 -Discontinue diazepam 10 mg 3 times daily, as reported by the patient his admission, and reduce the dose of diazepam to 10 mg twice daily, consistent with the dose identified by her outpatient psychiatrist. -Consider adding quetiapine 25 mg twice a day and 50 mg at bedtime for anxiety, mood stabilization, adjunctive treatment for depression, and sleep. (With discontinuation of risperidone) -Consider buspirone. The patient indicates that she has taken buspirone in the past, does not recall whether it was effective, and says that although she cannot recall exactly why she discontinued it, she believes that it may have be en because of a fear of associated weight gain. She has been offered some reassurances in this regard. 03/18 - Reduce Valium to 5 mg twice daily to reduce sedation. Given long half- life, there is a possibility that this became slowly more intoxicating over time at home dose. 03/19 - Pt describing improved alertness on reduced Valium so far. 03/20 - Decrease diazepam to 2.5 mg twice daily at patient's request. She continues to report sedation and cognitive impairment. Reviewed that many of the as needed medications for anxiety can cause these effects, and the need to balance the use of medications with other strategies for managing her anxiety. Benzodiazepine levels were significantly elevated on admission, so advised patient that her cognitive symptoms will likely improve with a lower dose. 03/21 - Patient reports significant improvement in confusion, energy, and daytime sedation on the lower dose of diazepam. She reports anxiety is minimal, and feels able to manage her stressors at home. Spent some time discussing that her level of anxiety will casino change attendant time, and that medications can be adjusted on an ongoing basis. Also advised her to contact her outpatient psychiatrist if she feels she is having intolerable side effects from medications. (2) Depression: 03/17/19 -Provide individual, group, activity, and educational interventions, with goals that include developing improved coping strategies and relaxation techniques. -Continue fluoxetine 80 mg daily. As noted, fluoxetine may be contributing to the patient's extrapyramidal symptoms and, within this context, it may be necessary to decrease her dose of fluoxetine, depending upon her response to antiparkinsonian agents and other medication changes. -The patient's outpatient psychiatrist has advised is that the patient's correct dose of topiramate is 50 mg 3 times a day. We will offer the patient topiramate 50 mg in the morning and 100 mg at bedtime for mood stabilization. (It is our understanding that her insurance company has not authorized extended release topiramate.) 03/18 -Patient reports previous good response to the Prozac and will defer changes to that medication today -As she believes her long-standing maintenance dose of the Topamax was 75 mg nightly and in considering possible negative cognitive effects of higher doses of the medication will reduce the Topamax back to her former maintenance dose of 75 mg nightly presently 03/19 - mood improving today w/o adjustment to antidepressant 03/20 -Called Dr. Hassan to coordinate care -left message requesting a callback. Would like to clarify medication doses with him, and discuss patient's confusion and difficulty with her medication dosing. 03/22 -Patient reporting good mood and denying suicidal thoughts. She is performing ADLs independently. She feels more alert with better energy after sedating medications were reduced. Continue fluoxetine 80 mg daily. -Spoke with Dr. Hassan's office staff on 03/20/2019, and they clarified the doses of her prescribed medications. Advised them that she was confused about the correct doses, and was taking some medications at lower doses due to side effects. (3) Extrapyramidal movement disorder, drug-induced: 03/17/19 -On examination today, the patient is found to have fairly pronounced cogwheel rigidity. This will be treated immediately with IM diphenhydramine, and then with Artane beginning at 1 mg this evening and 2 mg in the morning. The dose of Artane may need to be titrated further, depending on the patient's response. -The patient's complaints of increased anxiety and restlessness may have corresponded with concomitant increases in her her dosage of risperidone. Her dose of risperidone has been decreased to 2 mg at bedtime. -The patient's akathisia may be secondary to either risperidone or fluoxetine. We will evaluate the patient's response to antiparkinsonian agents and consider decreasing fluoxetine, if indicated. 03/18 -It remains unclear to me if she had, in fact, been taking a higher dose of the Risperdal at home. Before we reduce her dose any further, we will request nursing assistance to verify her last dispensed dose at [facility] in [facility] -No cogwheeling today. Describing improved restlessness following Benadryl and Artane yesterday however complains of increased drowsiness following those medications and will defer standing anticholinergic treatment for now. We may consider dose reduction of the Risperdal or possibly alternative agent with lower risk for EPS as suggested by Dr. Bear previously 03/19 - still trying to verify strength of most recent Risperdal tabs dispensed by pharmacy. nursing to f/u on this today. no evidence of EPS today 03/22 -EPS resolved after reducing dose of risperidone to 2 mg at bedtime. (4) Bulimia: Patient with history of bulimia, currently stable without symptoms. Continue monitoring as an outpatient, and encourage healthy amount of exercise and good nutrition. Post Discharge Appointments Primary Care Physician Name Of Family Doctor: Mikaelfranci [place] - Haven Fajardo Primary Care Provider Appointment Comment: as needed, [address] [place] [address] Primary Care Release of Information: Obtained, Reviewed and Signed Psychiatrist Name of Psychiatrist: Edna Wilder Psychiatrist's Date of Appointment with Psychiatrist: 03/28/19 Time of Appointment with Psychiatrist: 3:50pm Psychiatric Appointment Comment: [facility] [facility] [address], [place] [address] Psychiatrist Release of Information: Obtained, Reviewed and Signed Therapist Name of Therapist: [facility] - Mario Cabrera Therapist's Therapy Appointment Comment: Mario will contact you with appt time, [address] [facility] Therapist Release of Information: Obtained, Reviewed and Signed Topology Professor Name of Topology Professor: None Smoking Cessation Counseling Tobacco Cessation Medication Prescribed at Discharge: Not Applicable/Non-Smoker Contact Information Discharge Discharge Address: [address] [place] [id number] Discharge Plan Discharge Items Patient Disposition: Home - Self-Care Reason For Visit: DEPRESSION Discharge Diagnosis: Generalized anxiety disorder and depression Discharge Goals: Decrease discomfort, Improve disease control, Improve function, Learn about illness and Therapeutic intervention Activity: Per 'Additional Instructions' section Non-emergency contact: Primary Care Provider, Psychiatrist and Therapist Call non-emergency contact if: you have any medication questions and your symptoms worsen Follow-up/Referrals: Haven Fajardo, DO [Primary Care Provider] - Diet: Regular Addtl Provider Instructions: SPECIAL CARE INSTRUCTIONS: 1. Follow through with your scheduled aftercare appointments. If unable to keep an appointment, please call to reschedule. 2. Take your medication only as prescribed. Medication should not be changed or stopped without the approval of your doctor. In the event of worsening symptoms or concerns about side effects, contact your doctor immediately. 3. Utilize new healthy coping skills, anger management skills, and stress management skills learned during your hospitalization. Journal feelings and process them with a support person. Identify stressors or situations that may result in relapse, deterioration or inappropriate behaviors and develop a plan to deal with those issues. 4. If your coping skills are ineffective and you are in crisis, contact your outpatient providers for direction. If unable to reach your providers, please call the CAN HELP LINE AT or go to the closest Emergency Room. 5. Avoid alcohol and un-prescribed drugs. 6. You have been provided with the Mental Health Advance Directives Pamphlet for your review. AFTERCARE APPOINTMENTS: * Please call your insurance company prior to your scheduled appointment to confirm your aftercare providers are covered. Take your insurance information to your appointments. WHO TO CALL AND WHEN: Medical Emergencies: For questions or emergencies related to your hospital stay, please contact the Inpatient Behavioral Health Unit at [phone]. A reaming press operator is on-call 19/04 for the Behavioral Health Unit for emergencies At any time you feel your situation is an emergency, you may also call 911 immediately. Your Doctors Instructions noted above were prepared by provider Rossi Carias MD. Prescriptions: Continued melatonin 10 mg Capsule 10 mg PO HS PRN (Reason: Sleep) RF: 0 fluoxetine 20 mg Capsule 80 mg PO QAM Qty: 120 RF: 0 Changed diazepam 10 mg Tablet 2.5 mg PO BID Qty: 0 RF: 0 risperidone 1 mg tablet 2 mg PO HS Qty: 0 RF: 0 topiramate 50 mg tablet 75 mg PO HS Qty: 0 RF: 0 Discontinued diazepam 10 mg Tablet 10 mg PO QDL RF: 0 Stand-Alone Forms: [facility] Discharge Orders: Discharge Order (Routine); Ordered 03/22/19 Ordered By: Rossi Carias Admission Data Admit Date/Time: 03/16/19 16:15 Attending Provider: Rossi Carias Admit Provider: Rossi Carias Primary Care Provider: Haven Fajardo Service: Psychiatry Other Interventions: PSY Interdisciplinary Discharge Planning Last Done: 03/22/19 09:23 Pending Studies at Discharge: No
== END 2019-03-22 11:45 | disposition home or self-care (01) | DRG 885 ==
LOC: ED 13:18 → 3S 16:15